=== PATIENT | female | born 1950 | race Caucasian/White ===

== ENCOUNTER → 2016-12-03 | Outpatient (REF) | payer MEDICARE | LOC: M LAB REF 12:14 | PROVIDERS: ATTEND Internal Medicine Medical Oncology | DX: C18.9 Malignant neoplasm of colon, unspecified (principal) ==

== ENCOUNTER → 2020-09-10 | Outpatient (CLI) | payer MEDICARE ==
[~2020-09-10] MED LIST: AUGM875T28 PO; LEVO75TA4 PO; ONDA-83 PO; VITA1CAP25 PO
[2020-09-10 16:17] LABS: HEMATOCRIT 33.6 % (36.0-47.0); HEMOGLOBIN 11.2 g/dl (12.0-15.5); MEAN CORPUSCULAR HEMOGLOBIN 31.2 pg (27.0-33.0); MEAN CORPUSCULAR HGB CONC 33.3 g/dl (32.0-36.5); MEAN CORPUSCULAR VOLUME 93.6 fl (80.0-96.0); PLATELET COUNT, AUTOMATED 290 10^3/uL (150-450); RED BLOOD COUNT 3.59 10^6/uL (4.00-5.40); WHITE BLOOD COUNT 21.2 10^3/uL (4.0-10.0)
--- NOTE | 2020-09-10 16:44 | REP ---
INDICATION: LOW BACK PAIN. COMPARISON: 01/10/2008 TECHNIQUE: Five views FINDINGS: Five views of the lumbosacral spine show no acute fracture, dislocation or subluxation. The intervertebral disc spaces are symmetric and well maintained. There is no spondylolysis or spondylolisthesis. The pedicles are intact bilaterally and there is no destructive osseous lesion. Mild degenerative facet joint changes are seen bilaterally at L4-5 and particularly L5-S1 which have developed since the last exam. IMPRESSION: Unremarkable lumbosacral spine series. Mild chronic changes as described above. <Electronically signed by Nino Valenzuela > 09/10/20 [id number]
[2020-09-10 16:54] LABS: ALBUMIN 1.9 GM/DL (3.2-5.2); BILIRUBIN,TOTAL 0.9 MG/DL (0.2-1.0); CALCIUM LEVEL 8.4 MG/DL (8.8-10.2); CREATININE FOR GFR 1.45 MG/DL (0.55-1.30); GLOMERULAR FILTRATION RATE 37.9 (>39); POTASSIUM SERUM 4.4 MEQ/L (3.5-5.1); THYROID STIMULATING HORMONE 1.96 uIU/ML (0.358-3.740); TOTAL PROTEIN 5.6 GM/DL (6.4-8.2)
== END ==
LOC: M RAD 13:13
PROVIDERS: ATTEND Family Medicine Addiction Medicine
DX: R53.83 Other fatigue (principal); M54.5 Low back pain

== ENCOUNTER 2020-09-11 12:12 | Inpatient (IN) | payer MEDICARE ==
[~2020-09-11] VITALS: Ht 154.9 cm; Wt 42.6 kg
[2020-09-11] MEDS ORDERED: ONDA-83 PO (12:32)
[2020-09-11] MEDS ORDERED: VITA1CAP25 PO (12:32)
[2020-09-11] MEDS ORDERED: LEVO75TA4 PO (12:32)
[2020-09-11 13:10] LABS: BASO % 0.2 % (0.0-1.0); EOS % 0.1 % (0.0-3.0); HEMATOCRIT 31.4 % (36.0-47.0); HEMOGLOBIN 10.2 g/dl (12.0-15.5); LYMPH # 0.6 10^3/uL (1.5-5.0); LYMPH % 2.6 % (24.0-44.0); MEAN CORPUSCULAR HGB CONC 32.5 g/dl (32.0-36.5); MEAN CORPUSCULAR VOLUME 95.4 fl (80.0-96.0); MONO # 0.7 10^3/uL (0.0-0.8); NEUTROPHILS # 20.4 10^3/uL (1.5-8.5); NEUTROPHILS % 91.8 % (36.0-66.0); PLATELET COUNT, AUTOMATED 326 10^3/uL (150-450); RED BLOOD COUNT 3.29 10^6/uL (4.00-5.40); WHITE BLOOD COUNT 22.2 10^3/uL (4.0-10.0)
--- OUTSIDE RECORDS SUMMARY | 2020-09-11 13:14 | CCD ---
Author Organization Unknown Address [address] [place] [id number] Phone [phone] Care Team Providers Care Trashman Name Role Phone Ariel Campuzano Unavailable Unavailable Allergies Code Code System Name Reaction Severity Status Onset NKDA Medications Name Status Start Date Stop Date alendronate 70 mg tablet TAKE 1 TABLET BY MOUTH ONCE A WEEK Active Not available cholecalciferol (vitamin D3) 1,250 mcg ( 50,000 unit) capsule TAKE 1 CAPSULE BY MOUTH ONCE A WEEK Active Not available levothyroxine 75 mcg tablet Active Not available ondansetron HCl 4 mg tablet TAKE 2 TABLETS BY MOUTH TWICE DAILY FOR NAUSEA Active Not available ropinirole 1 mg tablet TAKE 2 TABLETS BY MOUTH 1 TO 3 HOURS BEFORE BEDTIME Active Not available sensura garcia [id number] USE DIRECTED AND CHANGE EVERY 1-2 DAYS NEEDED Active Not available Vitamin D2 1,250 mcg (50,000 unit) capsu le TAKE 1 CAPSULE BY MOUTH ONCE A WEEK FOR 90 DAYS Active Not available Problems Name Status Onset Date Source Vitamin D Deficiency Active 09/06/2019 History Actinic Keratosis Active 09/06/[address] Concept Unknown 09/06/2019 History Bone Density Finding Active 10/03/2019 History Urostomy Present Active 12/24/2019 History Hypothyroidism Active 02/19/2020 History Type 2 Diabetes Mellitus without Complication Active History Finding of Gastrointestinal Device Active 02/19/2020 History History of Malignant Neoplasm of Colon Active 0 Procedures Notes: total hysterectomy, colon resecti on with reconstruction, colostomy and reversal, bladder removal, urostomy, Cholecystectomy, gastric bypass 2003 or 2004 Results Lab Results Date Name Specimen Result Interpretation Description Value Range Status Address 07/15/2020 Cbc Blood venous Wbc 6.0 K/mm3 4.0-10.0 K /mm3 [facility]): 4 [facility] Blood venous Rbc 4.50 M/mm3 4.00-5.50 M/m m3 [facility]): 4 [facility] Blood venous Hgb 14.2 gm/dL 12.0-16.0 gm/ dL [facility] ([facility]): 4 [facility] Blood venous Hct 41.7 % 36.0-48.8 % [facility] ([facility]): 4 [facility] Blood venous Mcv 92.7 fL 80-96 fL [facility] ([facility]): 4 [facility] Blood venous High Mch 31.6 pg 27.0-31.[address] [facility] ([facility]): 4 [facility] Blood venous Mchc 34.1 g/dL 32.0-36.0 g/dL [facility] ([facility]): 4 [facility] Blood venous Rdw 13.3 % 10.0-14.5 % [facility] ([facility]): 4 [facility] Blood venous Plt 254 K/mm3 172-450 K/mm3 [facility] ([facility]): 4 [facility] 07/15/2020 Microalbumin, Urine Urine High Umax 59.5 mg/L 1.3-20.0 mg/L [facility] ([facility]): 4 [facility] Urine Ucre 52.5 mg/dL [facility] ([facility]): 4 [facility] Urine Mc 113 ug/mg [facility] ([facility]): 4 [facility] 07/15/2020 HbA1C (Hemoglobin a1C), Blood Ha1C 4.6 % 3.8-5.6 % [facility] ([facility]): 4 [facility] 07/15/2020 Estimated Average Glucose Eag 85.3 mg/ dL [facility] ([facility]): 4 [facility] 07/15/2020 TSH, Serum or Plasma Tsh 1.89 uIU/mL 0 .36-3.74 uIU/mL [facility] ([facility]): 4 [facility] 07/15/2020 CMP, Serum or Plasma Blood venous Glu 83 mg/dL 74-106 mg/dL [facility] ([facility]): 4 [facility] Blood venous Bun 16 mg/dL 7-18 mg/dL [facility] ([facility]): 4 [facility] Blood venous Cre 0.8 mg/dL 0.6-1.0 mg/dL [facility] ([facility]): 4 [facility] Blood venous High Na 148 mmol/L 136-145 mmol/ L [facility] ([facility]): 4 [facility] Blood venous K 4.8 mmol/L 3.5-5.1 mmol/ L [facility] ([facility]): 4 [facility] Blood venous High Cl 112 mmol/L 98-107 mmol/L [facility] ([facility]): 4 [facility] Blood venous Co2 25 mmol/L 21-32 mmol/L [facility] ([facility]): 4 [facility] Blood venous Ca 9.2 mg/dL 8.5-10.1 mg/dL [facility] ([facility]): 4 [facility] Blood venous Gap 11.0 mmol/L 5-12 mmol/L [facility] ([facility]): 4 [facility] Blood venous Gfr 71 mL/min [facility] ([facility]): 4 [facility] Blood venous Ast 32 U/L 15-37 U/L [facility] ([facility]): 4 [facility] Blood venous Alt 40 U/L 12-78 U/L [facility] ([facility]): 4 [facility] Blood venous Alk 76 U/L 46-116 U/L [facility] ([facility]): 4 [facility] Blood venous High Tbili 1.4 mg/dL 0.2-1.0 mg/dL [facility] ([facility]): 4 [facility] Blood venous Tp 7.0 g/dL 6.4-8.2 g/dL [facility] ([facility]): 4 [facility] Blood venous Alb 3.6 gm/dL 3.4-5.0 gm/dL [facility] ([facility]): 4 [facility] 07/15/2020 Lipid Panel, Serum Chol 157 mg/dL 0-200 mg/dL [facility] ([facility]): 4 [facility] Trig 61 mg/dL 0-150 mg/dL Final [facility] ([facility]): 4 [facility] Zzzldl 46 mg/dL 0-100 mg/dL Final [facility] ([facility]): 4 [facility] High Hdl 99 mg/dL 40-60 mg/dL Final [facility] ([facility]): 4 [facility] Chdl 1.6 0.0-5.0 Final [facility] ([facility]): 4 [facility] 07/15/2020 Vitamin D, 25-Hydroxy Vd25 41.8 NG/mL 3 0.0-100.0 NG/mL Final [facility] ([facility]): 4 [facility] Past Encounters 07/17/2020 Elevated Total Bilirubin; Nausea; Hypothyroidism; Type 2 Diabetes Mellitus without Complication; Urostomy Present; History of Malignant Neoplasm of Colon; Vitamin D Deficiency Ariel Campuzano, RPA-C: [address] [facility], [facility] [address], [place] [address], Ph. Social History Tobacco Smoking Status Never Smoker Vaccine List None recorded. Plan of Care Reminders Provider Appointments None recorded. Lab None recorded. Referral None recorded. Procedures None recorded. Surgeries None recorded. Imaging None recorded. Vitals 07/17/2020 10:10AM [facility] 20 Height 61 in 02/19/2020 Height Weight Blood Pressure 61 in 116 lbs 9.6 oz 136/75 mm[Hg] 09/06/2019 Height Weight Blood Pressure 61 in 117 lbs 4 oz 136/81 mm[Hg]
--- OUTSIDE RECORDS SUMMARY | 2020-09-11 13:14 | CCD | Continuity of Care Document ---
Author Author [facility] Address [address] [place] [address] Phone Care Team Providers Care Milk Delivery Driver Name Role Phone VICKY ART PCP Allergies, Adverse Reactions, Alerts No allergy information available. Medications No medication information available. Problems No problem information available. Procedures Procedure Date Performed Status PELVIS W/O IV CONTRAST September 01, 2020 completed LOWER EXTREM W/O IV CONTRAST September 01, 2020 completed Relevant Diagnostic Tests and/or Laboratory Data Laboratory Results Test Date/Time Result Interpretation Reference Range Result Co mment Performing Site White Blood Count July 15, 2020 7:03am 6.0 4.0-10 .0 [facility], [address] [place] [id number] Red Blood Count July 15, 2020 7:03am 4.50 4.00-5.5 0 [facility], [address] [place] [address] Hemoglobin July 15, 2020 7:03am 14.2 12.0-16.0 [facility], 4 [facility] [address] Hematocrit July 15, 2020 7:03am 41.7 36.0-48.8 [facility], [address] [place] [address] Mean Corpuscular Volume July 15, 2020 7:03am 92.7 80-96 [facility], [address] [facility] [address] Mean Corpuscular Hemoglobin July 15, 2020 7:03am 31.6 27.0-31.0 [facility], [address] [facility] [address] Mean Corpuscular Hgb Concent Diff July 15, 2020 7:03am 34.1 32.0-36.0 [facility], [address] [facility] [address] Red Cell Distribution Width July 15, 2020 7:03am 13.3 10.0-14.5 [facility], [address] [facility] [address] Platelet Count July 15, 2020 7:03am 254 172-450 [facility], [address] [facility] [address] Glucose Level July 28, 2020 8:09am 79 74-106 [facility], [address] [facility] [address] Blood Urea Nitrogen July 28, 2020 8:09am 19 7-1 8 [facility], [address] [facility] [address] Creatinine July 28, 2020 8:09am 0.8 0.6-1.0 [facility], [address] [place] [address] Sodium Level July 28, 2020 8:09am 141 136-145 [facility], [address] [facility] [address] Potassium Level July 28, 2020 8:09am 4.2 3.5-5.1 [facility], [address] [facility] [address] Chloride Level July 28, 2020 8:09am 106 98-107 [facility], [address] [facility] [address] Carbon Dioxide Level July 28, 2020 8:09am 27 21 -32 [facility], [facility] [address] Calcium Level July 28, 2020 8:09am 9.8 8.5-10.1 [facility], [address] [facility] [address] Anion Gap July 28, 2020 8:09am 8.0 5-12 [facility], [address] [facility] [address] Estimated GFR (MDRD) July 28, 2020 8:09am 71 GFR IS CALCULATED IN mL/min/1.73m2 NORMAL FUNCTION: >90MILDLY DECREASED: 60-89MILDY TO MODERATELY DECREASED: 45-59 MODERATELY TO SEVERELY DECREASED: 30-44SEVERELY DECREASED: 15-29RENAL FAILURE: <15 [facility], [address] [facility] [address] Aspartate Amino Transf (AST/SGOT) July 28, 2020 8:09am 24 15-37 [facility], [address] [facility] [address] Alanine Aminotransferase (ALT/SGPT) July 28, 2020 8:09am 41 12-78 [facility], [address] [facility] [address] Alkaline Phosphatase July 28, 2020 8:09am 68 46 -116 [facility], [address] [facility] [address] Total Bilirubin July 28, 2020 8:09am 0.9 0.2-1.0 [facility], [facility] [address] Total Protein July 28, 2020 8:09am 6.5 6.4-8.2 [facility], [address] [facility] [address] Albumin July 28, 2020 8:09am 3.3 3.4-5.0 [facility], [address] [facility] [address] Cholesterol Level July 15, 2020 7:03am 157 0-200 [facility], [facility] [address] Triglycerides Level July 15, 2020 7:03am 61 0-15 0 [facility], [facility] [address] LDL Cholesterol, Calculated July 15, 2020 7:03am 46 0-100 [facility], [facility] [address] HDL Cholesterol July 15, 2020 7:03am 99 40-60 [facility], [facility] [address] Cholesterol/HDL Ratio July 15, 2020 7:03am 1.6 0. 0-5.0 [facility], [address] [facility] [address] Thyroid Stimulating Hormone (TSH) July 15, 2020 7:03am 1.89 0.36-3.74 [facility], [address] [facility] [address] Hemoglobin A1c July 15, 2020 7:03am 4.6 3.8-5. 6 Diabetic > or = to 6.5%Prediabetes 5.7-6.4%Normal <5.7 [facility], [address] [facility] [address] Urine Microalbumin July 15, 2020 7:03am 59.5 1.3-2 0.0 [facility], [address] [facility] [address] Urine Creatinine July 15, 2020 7:03am 52.5 [facility], [address] [facility] [address] Ur Microalbumin/Creat Ratio Semi-Qt July 15, 2020 7:03am 113 [facility], [address] [facility] [address] Estimated Average Glucose July 15, 2020 7:03am 85.3 [facility], [facility] [address] Vitamin D 25-Hydroxy July 15, 2020 7:03am 41.8 30.0-100.0 Vitamin D deficiency has been defined by the [place] [employer] and an Endocrine Society practice guideline as alevel of serum 25-OH vitamin D less than 20 ng/mL (1,2).The Endocrine Society went on to further define vitamin Dinsufficiency as a level between 21 and 29 ng/mL (2).1. IOM ([place] [employer]). 2010. Dietary reference intakes for calcium and D. [place]: The National Academies Press.2. Tianna MF, Rhoda NC, Colleen RAYMOND, et al. Evaluation, treatment, and prevention of vitamin D deficiency: an Endocrine Society clinical practice guideline. JCEM. 2010; 96(7):1911-30.Performed at: RN - [facility] [place] [id number] Director: Rossi Bryant MD, Phone: [phone] [facility] Health Concerns No known health concerns documented Chief Complaint and Reason for Visit Reason for Visit BACK/LEG PAIN Encounters Encounter Location(s) Arrival/Admit Date Discharge/Depart Date Provider(s) Departed Emergency [facility] September 01, 2020 11:08a m September 01, 2020 3:11pm FERCHO AMES @ Registered [facility] July 28, 2020 8:06am VICKY ART Registered [facility] July 15, 2020 6:53am IVCKY ART Assessments No Assessments Information Available Functional Status No Functional Status information available Goals No Goals Information Available Immunizations No Immunization Information Available Mental Status No Mental Status Information Available Medical Equipment No Medical Equipment Information available Insurance Providers Guarantor MAGGIE GARCIA Address [address] [address] Contact Info. Home Phone: Payer Policy Id Coverage Id Subscriber's Name Subscriber Id Effect sudhir Date Expiration Date [id number] [id number] MAGGIE GARCIA Social History Assigned Sex Female Vital Signs No vital signs result information available.
--- OUTSIDE RECORDS SUMMARY | 2020-09-11 13:14 | CCD ---
Author Author [facility] Organization [facility] Address Unknown Phone Unavailable Care Team Providers Care Construction Crew Member Name Role Phone Shreya, M Sammi PA-C Unavailable Unavailable Shreya, M Sammi PA-C Unavailable Unavailable Shreya, M Sammi PA-C Unavailable Unavailable Shreya, M Sammi PA-C Unavailable Unavailable Shreya, M Sammi PA-C Unavailable Unavailable Shreya, M Sammi PA-C Unavailable Unavailable Shreya, M Sammi PA-C Unavailable Unavailable Shreya, M Sammi PA-C Unavailable Unavailable Shreya, M Sammi PA-C Unavailable Unavailable Shreya, M Sammi PA-C Unavailable Unavailable Shreya, M Sammi PA-C Unavailable Unavailable Shreya, M Sammi PA-C Unavailable Unavailable Shreya, M Sammi PA-C Unavailable Unavailable Shreya, M Sammi PA-C Unavailable Unavailable Shreya, M Sammi PA-C Unavailable Unavailable Shreya, M Sammi PA-C Unavailable Unavailable Shreya, M Sammi PA-C Unavailable Unavailable Shreya, M Sammi PA-C Unavailable Unavailable Shreya, M Sammi PA-C Unavailable Unavailable Shreya, M Sammi PA-C Unavailable Unavailable Shreya, M Sammi PA-C Unavailable Unavailable Shreya, M Sammi PA-C Unavailable Unavailable Shreya, M Sammi PA-C Unavailable Unavailable ART, TOMASA ARIEL RPA-C Unavailable Unavailable ART, TOMASA ARIEL RPA-C Unavailable Unavailable ART, TOMASA ARIEL RPA-C Unavailable Unavailable ART, TOMASA ARIEL RPA-C Unavailable Unavailable ART, TOMASA ARIEL RPA-C Unavailable Unavailable ART, TOMASA ARIEL RPA-C Unavailable Unavailable ART, TOMASA ARIEL RPA-C Unavailable Unavailable ART, TOMASA ARIEL RPA-C Unavailable Unavailable ART, TOMASA ARIEL RPA-C Unavailable Unavailable ART, TOMASA ARIEL RPA-C Unavailable Unavailable ART, TOMASA ARIEL RPA-C Unavailable Unavailable ART, TOMASA ARIEL RPA-C Unavailable Unavailable ART, TOMASA ARIEL RPA-C Unavailable Unavailable ART, TOMASA ARIEL RPA-C Unavailable Unavailable ART, TOMASA ARIEL RPA-C Unavailable Unavailable ART, TOMASA ARIEL RPA-C Unavailable Unavailable ART, TOMASA ARIEL RPA-C Unavailable Unavailable ART, TOMASA ARIEL RPA-C Unavailable Unavailable ART, TOMASA ARIEL RPA-C Unavailable Unavailable ART, TOMASA ARIEL RPA-C Unavailable Unavailable ART, TOMASA ARIEL RPA-C Unavailable Unavailable ART, TOMASA ARIEL RPA-C Unavailable Unavailable ART, TOMASA ARIEL RPA-C Unavailable Unavailable ART, TOMASA ARIEL RPA-C Unavailable Unavailable ART, TOMASA ARIEL RPA-C Unavailable Unavailable ART, TOMASA ARIEL RPA-C Unavailable Unavailable ART, TOMASA ARIEL RPA-C Unavailable Unavailable ART, TOMASA ARIEL RPA-C Unavailable Unavailable ART, TOMASA ARIEL RPA-C Unavailable Unavailable ART, TOMASA ARIEL RPA-C Unavailable Unavailable ART, TOMASA ARIEL RPA-C Unavailable Unavailable ART, TOMASA ARIEL RPA-C Unavailable Unavailable ART, TOMASA ARIEL RPA-C Unavailable Unavailable ART, TOMASA ARIEL RPA-C Unavailable Unavailable ART, TOMASA ARIEL RPA-C Unavailable Unavailable ART, TOMASA ARIEL RPA-C Unavailable Unavailable ART, TOMASA ARIEL RPA-C Unavailable Unavailable ART, TOMASA ARIEL RPA-C Unavailable Unavailable ART, TOMASA ARIEL RPA-C Unavailable Unavailable Anjelica AMES Unavailable Unavailable HUI, L FERCHO PA Unavailable Unavailable HUI, L FERCHO PA Unavailable Unavailable HUI, L FERCHO PA Unavailable Unavailable HUI, L FERCHO PA Unavailable Unavailable HUI, L FERCHO PA Unavailable Unavailable HUI, L FERCHO PA Unavailable Unavailable HUI, L FERCHO PA Unavailable Unavailable HUI, L FERCHO PA Unavailable Unavailable HUI, L FERCHO PA Unavailable Unavailable HUI, L FERCHO PA Unavailable Unavailable HUI, L FERCHO PA Unavailable Unavailable HUI, L FERCHO PA Unavailable Unavailable HUI, L FERCHO PA Unavailable Unavailable HUI, L FERCHO PA Unavailable Unavailable HUI, L FERCHO PA Unavailable Unavailable HUI, L FERCHO PA Unavailable Unavailable HUI, L FERCHO PA Unavailable Unavailable HUI, L FERCHO PA Unavailable Unavailable NAVA, DIANA LUIS FELIPE FOUNDER PRESIDENT AND CEO-C, MSN Unavailable Unavailab le NAVA, DIANA LUIS FELIPE FOUNDER PRESIDENT AND CEO-C, MSN Unavailable Unavailab le NAVA, DIANA LUIS FELIPE FOUNDER PRESIDENT AND CEO-C, MSN Unavailable Unavailab le NAVA, DIANA LUIS FELIPE FOUNDER PRESIDENT AND CEO-C, MSN Unavailable Unavailab le NAVA, DIANA LUIS FELIPE FOUNDER PRESIDENT AND CEO-C, MSN Unavailable Unavailab le NAVA, DIANA LUIS FELIPE FOUNDER PRESIDENT AND CEO-C, MSN Unavailable Unavailab le NAVA, DIANA LUIS FELIPE FOUNDER PRESIDENT AND CEO-C, MSN Unavailable Unavailab le NAVA, DIANA LUIS FELIPE FOUNDER PRESIDENT AND CEO-C, MSN Unavailable Unavailab le NAVA, DIANA LUIS FELIPE FOUNDER PRESIDENT AND CEO-C, MSN Unavailable Unavailab le NAVA, DIANA LUIS FELIPE FOUNDER PRESIDENT AND CEO-C, MSN Unavailable Unavailab le NAVA, DIANA LUIS FELIPE FOUNDER PRESIDENT AND CEO-C, MSN Unavailable Unavailab le NAVA, DIANA LUIS FELIPE FOUNDER PRESIDENT AND CEO-C, MSN Unavailable Unavailab le NAVA, DIANA LUIS FELIPE FOUNDER PRESIDENT AND CEO-C, MSN Unavailable Unavailab le NAVA, DIANA LUIS FELIPE FOUNDER PRESIDENT AND CEO-C, MSN Unavailable Unavailab le NAVA, DIANA LUIS FELIPE FOUNDER PRESIDENT AND CEO-C, MSN Unavailable Unavailab le NAVA, DIANA LUIS FELIPE FOUNDER PRESIDENT AND CEO-C, MSN Unavailable Unavailab le NAVA, DIANA LUIS FELIPE FOUNDER PRESIDENT AND CEO-C, MSN Unavailable Unavailab le NAVA, DIANA LUIS FELIPE FOUNDER PRESIDENT AND CEO-C, MSN Unavailable Unavailab le NAVA, DIANA LUIS FELIPE FOUNDER PRESIDENT AND CEO-C, MSN Unavailable Unavailab le NAVA, DIANA LUIS FELIPE FOUNDER PRESIDENT AND CEO-C, MSN Unavailable Unavailab le NAVA, DIANA LUIS FELIPE FOUNDER PRESIDENT AND CEO-C, MSN Unavailable Unavailab le NAVA, DIANA LUIS FELIPE FOUNDER PRESIDENT AND CEO-C, MSN Unavailable Unavailab le NAVA, DIANA LUIS FELIPE FOUNDER PRESIDENT AND CEO-C, MSN Unavailable Unavailab le NAVA, DIANA LUIS FELIPE FOUNDER PRESIDENT AND CEO-C, MSN Unavailable Unavailab le NAVA, DIANA LUIS FELIPE FOUNDER PRESIDENT AND CEO-C, MSN Unavailable Unavailab le NAVA, DIANA LUIS FELIPE FOUNDER PRESIDENT AND CEO-C, MSN Unavailable Unavailab le NAVA, DIANA LUIS FELIPE FOUNDER PRESIDENT AND CEO-C, MSN Unavailable Unavailab le NAVA, DIANA LUIS FELIPE FOUNDER PRESIDENT AND CEO-C, MSN Unavailable Unavailab le NAVA, DIANA LUIS FELIPE FOUNDER PRESIDENT AND CEO-C, MSN Unavailable Unavailab le NAVA, DIANA LUIS FELIPE FOUNDER PRESIDENT AND CEO-C, MSN Unavailable Unavailab le NAVA, DIANA LUIS FELIPE FOUNDER PRESIDENT AND CEO-C, MSN Unavailable Unavailab le NAVA, DIANA LUIS FELIPE FOUNDER PRESIDENT AND CEO-C, MSN Unavailable Unavailab le NAVA, DIANA LUIS FELIPE FOUNDER PRESIDENT AND CEO-C, MSN Unavailable Unavailab le NAVA, DIANA LUIS FELIPE FOUNDER PRESIDENT AND CEO-C, MSN Unavailable Unavailab le NAVA, DIANA LUIS FELIPE FOUNDER PRESIDENT AND CEO-C, MSN Unavailable Unavailab le NAVA, DIANA LUIS FELIPE FOUNDER PRESIDENT AND CEO-C, MSN Unavailable Unavailab le NAVA, DIANA LUIS FELIPE FOUNDER PRESIDENT AND CEO-C, MSN Unavailable Unavailab le NAVA, DIANA LUIS FELIPE FOUNDER PRESIDENT AND CEO-C, MSN Unavailable Unavailab le NAVA, DIANA LUIS FELIPE FOUNDER PRESIDENT AND CEO-C, MSN Unavailable Unavailab le NAVA, DIANA LUIS FELIPE FOUNDER PRESIDENT AND CEO-C, MSN Unavailable Unavailab le NAVA, DIANA LUIS FELIPE FOUNDER PRESIDENT AND CEO-C, MSN Unavailable Unavailab le NAVA, DIANA LUIS FELIPE FOUNDER PRESIDENT AND CEO-C, MSN Unavailable Unavailab le ART, TOMASA ARIEL RPA-C Unavailable Unavailable ART, TOMASA ARIEL RPA-C Unavailable Unavailable ART, TOMASA ARIEL RPA-C Unavailable Unavailable ART, TOMASA ARIEL RPA-C Unavailable Unavailable ART, TOMASA ARIEL RPA-C Unavailable Unavailable ART, TOMASA ARIEL RPA-C Unavailable Unavailable ART, TOMASA ARIEL RPA-C Unavailable Unavailable ART, TOMASA ARIEL RPA-C Unavailable Unavailable ART, TOMASA ARIEL RPA-C Unavailable Unavailable ART, TOMASA ARIEL RPA-C Unavailable Unavailable ART, TOMASA ARIEL RPA-C Unavailable Unavailable ART, TOMASA ARIEL RPA-C Unavailable Unavailable ART, TOMASA ARIEL RPA-C Unavailable Unavailable ART, TOMASA ARIEL RPA-C Unavailable Unavailable ART, TOMASA ARIEL RPA-C Unavailable Unavailable ART, TOMASA ARIEL RPA-C Unavailable Unavailable ART, TOMASA ARIEL RPA-C Unavailable Unavailable ART, TOMASA ARIEL RPA-C Unavailable Unavailable ART, TOMASA ARIEL RPA-C Unavailable Unavailable ART, TOMASA ARIEL RPA-C Unavailable Unavailable ART, TOMASA ARIEL RPA-C Unavailable Unavailable ART, TOMASA ARIEL RPA-C Unavailable Unavailable ART, TOMASA ARIEL RPA-C Unavailable Unavailable ART, TOMASA ARIEL RPA-C Unavailable Unavailable ART, TOMASA ARIEL RPA-C Unavailable Unavailable ART, TOMASA ARIEL RPA-C Unavailable Unavailable ART, TOMASA ARIEL RPA-C Unavailable Unavailable ART, TOMASA ARIEL RPA-C Unavailable Unavailable ART, TOMASA ARIEL RPA-C Unavailable Unavailable ART, TOMASA ARIEL RPA-C Unavailable Unavailable ART, TOMASA ARIEL RPA-C Unavailable Unavailable RAT, TOMASA ARIEL RPA-C Unavailable Unavailable ART, TOMASA ARIEL RPA-C Unavailable Unavailable ART, TOMASA ARIEL RPA-C Unavailable Unavailable ART, TOMASA ARIEL RPA-C Unavailable Unavailable ART, TOMASA ARIEL RPA-C Unavailable Unavailable ART, TOMASA ARIEL RPA-C Unavailable Unavailable ART, TOMASA ARIEL RPA-C Unavailable Unavailable ART, TOMASA ARIEL RPA-C Unavailable Unavailable Kelly ELIZABETH Unavailable Unavailable Veronika MANCERA Unavailable [phone] Veronika MANCERA Unavailable [phone] Veronika MANCERA Unavailable [phone] Veronika MANCERA Unavailable [phone] Veronika MANCERA Unavailable [phone] Deanna, A Sammi FOUNDER PRESIDENT AND CEO Unavailable Unavailable Deanna, A Sammi FOUNDER PRESIDENT AND CEO Unavailable Unavailable Deanna, A Sammi FOUNDER PRESIDENT AND CEO Unavailable Unavailable Deanna, A Sammi FOUNDER PRESIDENT AND CEO Unavailable Unavailable Deanna, A Sammi FOUNDER PRESIDENT AND CEO Unavailable Unavailable Deanna, A Sammi FOUNDER PRESIDENT AND CEO Unavailable Unavailable Deanna, A Sammi FOUNDER PRESIDENT AND CEO Unavailable Unavailable Deanna, A Sammi FOUNDER PRESIDENT AND CEO Unavailable Unavailable Deanna, A Sammi FOUNDER PRESIDENT AND CEO Unavailable Unavailable Deanna, A Sammi FOUNDER PRESIDENT AND CEO Unavailable Unavailable Deanna, A Sammi FOUNDER PRESIDENT AND CEO Unavailable Unavailable Deanna, A Sammi FOUNDER PRESIDENT AND CEO Unavailable Unavailable Deanna, A Sammi FOUNDER PRESIDENT AND CEO Unavailable Unavailable Deanna, A Sammi FOUNDER PRESIDENT AND CEO Unavailable Unavailable Deanna, A Sammi FOUNDER PRESIDENT AND CEO Unavailable Unavailable Deanna, A Sammi FOUNDER PRESIDENT AND CEO Unavailable Unavailable Deanna, A Sammi FOUNDER PRESIDENT AND CEO Unavailable Unavailable Deanna, A Sammi FOUNDER PRESIDENT AND CEO Unavailable Unavailable Deanna, A Sammi FOUNDER PRESIDENT AND CEO Unavailable Unavailable Deanna, A Sammi FOUNDER PRESIDENT AND CEO Unavailable Unavailable Deanna, A Sammi FOUNDER PRESIDENT AND CEO Unavailable Unavailable Deanna, A Sammi FOUNDER PRESIDENT AND CEO Unavailable Unavailable Deanna, A Sammi FOUNDER PRESIDENT AND CEO Unavailable Unavailable Deanna, A Sammi FOUNDER PRESIDENT AND CEO Unavailable Unavailable Deanna, A Sammi FOUNDER PRESIDENT AND CEO Unavailable Unavailable Deanna, A Sammi FOUNDER PRESIDENT AND CEO Unavailable Unavailable Deanna, A Sammi FOUNDER PRESIDENT AND CEO Unavailable Unavailable Deanna, A Sammi FOUNDER PRESIDENT AND CEO Unavailable Unavailable Deanna, A Sammi FOUNDER PRESIDENT AND CEO Unavailable Unavailable Deanna, A Sammi FOUNDER PRESIDENT AND CEO Unavailable Unavailable Deanna, A Sammi FOUNDER PRESIDENT AND CEO Unavailable Unavailable Deanna, A Sammi FOUNDER PRESIDENT AND CEO Unavailable Unavailable Deanna, A Sammi FOUNDER PRESIDENT AND CEO Unavailable Unavailable Deanna, A Sammi FOUNDER PRESIDENT AND CEO Unavailable Unavailable Deanna, A Sammi FOUNDER PRESIDENT AND CEO Unavailable Unavailable Deanna, A Sammi FOUNDER PRESIDENT AND CEO Unavailable Unavailable Deanna, A Sammi FOUNDER PRESIDENT AND CEO Unavailable Unavailable Deanna, A Sammi FOUNDER PRESIDENT AND CEO Unavailable Unavailable Deanna, A Sammi FOUNDER PRESIDENT AND CEO Unavailable Unavailable Deanna, A Sammi FOUNDER PRESIDENT AND CEO Unavailable Unavailable Deanna, A Sammi FOUNDER PRESIDENT AND CEO Unavailable Unavailable Deanna, A Sammi FOUNDER PRESIDENT AND CEO Unavailable Unavailable Deanna, A Sammi FOUNDER PRESIDENT AND CEO Unavailable Unavailable Deanna, A Sammi FOUNDER PRESIDENT AND CEO Unavailable Unavailable ELIZABETH, A CECILIA Unavailable Unavailable ART, TOMASA ARIEL RPA-C Unavailable Unavailable ART, TOMASA ARIEL RPA-C Unavailable Unavailable ART, TOMASA ARIEL RPA-C Unavailable Unavailable ART, TOMASA ARIEL RPA-C Unavailable Unavailable ART, TOMASA ARIEL RPA-C Unavailable Unavailable ART, TOMASA ARIEL RPA-C Unavailable Unavailable ART, TOMASA ARIEL RPA-C Unavailable Unavailable ART, TOMASA ARIEL RPA-C Unavailable Unavailable ART, TOMASA ARIEL RPA-C Unavailable Unavailable ART, TOMASA ARIEL RPA-C Unavailable Unavailable ART, TOMASA ARIEL RPA-C Unavailable Unavailable ART, TOMASA ARIEL RPA-C Unavailable Unavailable ART, TOMASA ARIEL RPA-C Unavailable Unavailable ART, TOMASA ARIEL RPA-C Unavailable Unavailable ART, TOMASA ARIEL RPA-C Unavailable Unavailable ART, TOMASA ARIEL RPA-C Unavailable Unavailable ART, TOMASA ARIEL RPA-C Unavailable Unavailable ART, TOMASA ARIEL RPA-C Unavailable Unavailable ART, TOMASA ARIEL RPA-C Unavailable Unavailable ART, TOMASA ARIEL RPA-C Unavailable Unavailable ART, TOMASA ARIEL RPA-C Unavailable Unavailable ART, TOMASA ARIEL RPA-C Unavailable Unavailable ART, TOMASA ARIEL RPA-C Unavailable Unavailable ART, TOMASA ARIEL RPA-C Unavailable Unavailable ART, TOMASA ARIEL RPA-C Unavailable Unavailable ART, TOMASA ARIEL RPA-C Unavailable Unavailable ART, TOMASA ARIEL RPA-C Unavailable Unavailable ART, TOMASA ARIEL RPA-C Unavailable Unavailable ART, TOMASA ARIEL RPA-C Unavailable Unavailable ART, TOMASA ARIEL RPA-C Unavailable Unavailable ATR, TOMASA ARIEL RPA-C Unavailable Unavailable ART, TOMASA ARIEL RPA-C Unavailable Unavailable ART, TOMASA ARIEL RPA-C Unavailable Unavailable ART, TOMASA ARIEL RPA-C Unavailable Unavailable ART, TOMASA ARIEL RPA-C Unavailable Unavailable ART, TOMASA ARIEL RPA-C Unavailable Unavailable ART, TOMASA ARIEL RPA-C Unavailable Unavailable ART, TOMASA ARIEL RPA-C Unavailable Unavailable ART, TOMASA ARIEL RPA-C Unavailable Unavailable [facility], NOLBERTO PERRY Unavailable Unavailable Re-disclosure Warning The records that you are about to access may contain information from federally-assisted alcohol or drug abuse programs. If such information is present, then the following federally mandated warning applies: This information has been disclosed to you from records protected by federal confidentiality rules (42 CFR part 2). The federal rules prohibit you from making any further disclosure of this information unless further disclosure is expressly permitted by the written consent of the person to whom it pertains or as otherwise permitted by 42 CFR part 2. A general authorization for the release of medical or other information is NOT sufficient for this purpose. The Federal rules restrict any use of the information to criminally investigate or prosecute any alcohol or drug abuse patient.The records that you are about to access may contain highly sensitive health information, the redisclosure of which is protected by Article 27-F of the [facility] Public Health law. If you continue you may have access to information: Regarding HIV / AIDS; Provided by facilities licensed or operated by the [facility] Office of Mental Health; or Provided by the [facility] Office for People With Developmental Disabilities. If such information is present, then the following [facility] mandated warning applies: This information has been disclosed to you from confidential records which are protected by state law. State law prohibits you from making any further disclosure of this information without the specific written consent of the person to whom it pertains, or as otherwise permitted by law. Any unauthorized further disclosure in violation of state law may result in a fine or half-way sentence or both. A general authorization for the release of medical or other information is NOT sufficient authorization for further disc losure. Encounters Encounter Providers Location Date Indications Data Source(s ) Emergency Attender: FERCHO Brookser: ARIEL JACOBS 09/01/2020 06:51:00 PM EST - 09/01/2020 08:11:00 PM [facility] pital Patient discharged. Outpatient Attender: ARIEL EPPERSONCReferrer: CATIE JACOBS EMERGENCY ROOM-LABOTHPROV 07/28/2020 01:06:00 PM EST - 07/28/2020 01:06:00 PM [facility] REYNALDO Pratt: [address], [place] [address], Ph. Attender: ARIEL JACOBS [facility] Medical 07/17/2020 12:00:00 AM EST [facility] ([facility]) Outpatient Attender: ARIEL Bennettferrer: CATIE ART RPA-C EMERGENCY ROOM-LABOTHPROV 07/15/2020 11:53:00 AM EST - 07/15/2020 11:53:00 AM EST [facility] ENTER 06/16/2020 12:00:00 AM EST eCW1 ([facility]) Outpatient Attender: ARIEL EPPERSONC [facility] 05/16/2020 09:34:[address] [facility] Outpatient Attender: NOLBERTO HAJI [facility] 04/16 03:50:[address] [facility] Outpatient Attender: ARIEL EPPERSONC [facility] 05/08/2020 03:49:[address] [facility] Outpatient Attender: NOLBERTO HAJI ALL 04/15 02:31:[address] [facility] Outpatient Attender: NOLBERTO HAJI ALL 03/16 03:49:[address] [facility] Outpatient Attender: NOLBERTO HAJI ALL 02/12 05:27:[address] [facility] Outpatient Attender: ARIEL ART RPA-C ALL 02/27/2020 07:38:[address] [facility] Outpatient Attender: NOLBERTO HAJI ALL 02/12 07:38:[address] [facility] Outpatient Attender: ARIEL Lalrer: CATIE ART RPA-C EMERGENCY ROOM-LABOTHPROV 02/20/2020 08:59:00 AM EDT - 02/20/2020 08:59:00 AM EDT [facility] Outpatient Attender: ARIEL ART RPA-C ALL 02/19/2020 02:16:[address] [facility] Outpatient Attender: NOLBERTO HAJI ALL 12/13 12:30:[address] [facility] Outpatient Attender: ARIEL ART RPA-C ALL 12/24/2019 11:26:[address] [facility] Outpatient Attender: NOLBERTO HAJI ALL 11/2019 02:30:[address] [facility] Outpatient Attender: CECILIA Chao er: CECILIA ELIZABETHReferrer: ARIEL ART RPA-C 11/12/2019 10:00:00 AM EDT [facility] Outpatient Attender: CECILIA Chao er: CECILIA ELIZABETHReferrer: ARIEL ART RPA-C EMERGENCY ROOM-LABOTHPROV 11/07/2019 12:13:00 PM EDT - 11/07/2019 12:13:00 PM EDT [facility] C ENTER 10/11/2019 12:00:00 AM EST eCW1 ([facility]) Outpatient Attender: Sammi Huerta FNPReferrer: ARIEL MIDDLETON RPA-C 10/09/2019 04:14:00 PM EST - 10/09/2019 04:14:00 PM EST [facility] C ENTER 10/05/2019 12:00:00 AM EST eCW1 ([facility]) Outpatient Attender: ARIEL ART RPA-C ALL 10/03/2019 12:06:02 PM [facility] Outpatient Attender: NOLBERTO HAJI ALL 09/15 12:05:02 PM [facility] Outpatient Attender: ARIEL ART RPA-C ALL 09/12/2019 11:28:04 AM [facility] Outpatient Attender: NOLBERTO HAJI ALL 08/16 11:28:03 AM [facility] Outpatient Attender: ARIEL ART RPA-C ALL 09/12/2019 11:24:01 AM [facility] Outpatient [facility] 08/29/2019 12:00:00 AM EST eCW1 ([facility]) Outpatient Attender: Sammi SIGALACReferrer: ARIEL ART RPA-C EMERGENCY ROOM-LAB 08/27/2019 12:56:00 PM EST - 08/27/2019 12:56:[address] [facility] ENTER 08/21/2019 12:00:00 AM EST eCW1 ([facility]) Outpatient Attender: ARIEL EPPERSONCReferrer: CATIE JACOBS EMERGENCY ROOM-RIVCLI 06/12/2019 01:18:00 PM EDT - 06/12/2019 01:18:00 PM [facility] Outpatient Attender: ARIEL JACOBS 08/16 02:00:00 PM EST - 09/11/2018 02:00:00 PM [facility] Emergency Attender: SOSA MANCERAReferrer: VENU PAULINO EMERGENCY ROOM-ER 11/07/2016 05:51:00 PM EDT - 11/08/2016 01:05:00 AM [facility] Outpatient Attender: VENU PAULINOReferr er: LUIS FELIPE SINGER, VENU EMERGENCY ROOM-MAMMO 02/23/2016 08:53:00 AM EDT [facility] Insurance Providers Payer name Policy type / Coverage type Policy ID Covered alliance party ID Covered alliance party's relationship to rosenberg Policy [place] Plan Information MEDICARE COMPLETE [id number] SP [id number] MEDICARE COMPLETE [id number] SP [id number] [employer] [id number] S MEB [id number] [employer] [id number] S [id number] [id number] [employer] MEDICARE [id number] S [id number] [id number] [id number] S [id number] [id number] ANSI-Commercial [id number] ANSI-Commercial [id number] ANSI-Commercial [id number] ANSI-Commercial [id number] ANSI-Commercial [id number] ANSI-Commercial [id number] ANSI-Commercial [id number] ANSI-Commercial [id number] ANSI-Commercial [id number] ANSI-Commercial [id number] ANSI-Commercial [id number] ANSI-Commercial [id number] ANSI-Commercial [id number] ANSI-Commercial [id number] MEDICARE COMPLETE [id number] SP [id number] [employer] [place] PPO 302/[id number] SP [id number] [employer] [place] [id number] S [id number] Problems, Conditions, and Diagnoses Code Display Name Description Problem Type Effective Dates Data Source(s) 686283541 History of malignant neoplasm of colon H istory of Malignant Neoplasm of Colon Problem 07/29/2020 12:00:00 AM EST [facility] ([facility]) V85.1 BMI 21.0-21.9 BMI 21.0-21.9 05/16/2020 09:33:[address] [facility] [id number] Hypothyroidism, unspecified Hypothyroidism, unspecifie d 02/27/2020 07:37:[address] [facility] Z85.038 Personal history of other malignant neop lasm of large intestine History of malignant neoplasm of colon 02/19/2020 02:14:11 PM EDT No [facility] V45.86 Bariatric surgery status Bariatric surgery status 02/19/2020 02:14:[address] [facility] since 2003 or 2004 [id number] Type 2 diabetes mellitus without complic ations Type 2 diabetes mellitus without complications 02/19/2020 02:14:11 PM EDT No [facility] diet controlled since 2003 [id number] Finding of gastrointestinal device Finding of Ga strointestinal Device Problem 02/19/2020 12:00:00 AM EDT [facility] ([facility]) [id number] Type 2 diabetes mellitus without complic ation Type 2 Diabetes Mellitus without Complication Problem 02/19/2020 12:00:00 AM EDT [facility] ([facility]) [id number] Hypothyroidism Hypothyroidism Problem 02/19/2020 12:00: 00 AM EDT [facility] ([facility]) Z93.6 Other artificial openings of urinary tract status Uros dasia present 12/24/2019 11:25:[address] [facility] [id number] Urostomy present Urostomy Present Problem 12/24/2019 12 :00:00 AM EDT [facility] ([facility]) M85.89 Other specified disorders of bone densit y and structure, multiple sites Other specified disorders of bone density and structure, multiple sites 10/03/2019 12:04:04 PM [facility] [id number] Bone density finding Bone Density Finding Problem 10/03/2019 12:00:00 AM EST [facility] ([facility] er) 787.01 Nausea with vomiting, unspecified Nausea with vomiting , unspecified 09/12/2019 11:27:25 AM [facility] L57.0 Actinic keratosis Actinic keratosis 09/12/2019 11:22:13 AM [facility] [id number] Vitamin D deficiency, unspecified Vitamin D deficiency , unspecified 09/12/2019 11:22:13 AM [facility] [id number] Encounter for general adult medical examination without abnormal findings Encounter for general adult medical exam ination without abnormal findings 09/12/2019 11:22:13 AM [facility] [id number] SNOMED CT Concept SNOMED CT Concept Problem 09/06 12:00:00 AM EST - 07/29/2020 12:00:00 AM EST [facility] ([facility]) [id number] Actinic keratosis Actinic Keratosis Problem 09/06 12:00:00 AM EST [facility] ([facility])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 Press.2. Tianna PRITCHETT, Rhoda FONG, Colleen RAYMOND, et al. Evaluation, treatment, and prevention of vitamin D deficiency: an Endocrine Society clinical practice guideline. JCEM. 2010; 96(7):1911-30. ID Date Data Source [id number] 02/20/2020 10:10:00 AM EDT [facility] Name Value Range Interpretation Code Description Data Joselin rce(s) Supporting Document(s) FREE T4 0.85 ng/dL 0.76-1.46 [facility] ID Date Data Source [id number] 02/20/2020 10:10:00 AM EDT [facility] Name Value Range Interpretation Code Description Data Joselin rce(s) Supporting Document(s) TSH 3.71 uIU/mL 0.36-3.74 [facility] ID Date Data Source [id number] 02/20/2020 09:53:00 AM EDT [facility] l Name Value Range Interpretation Code Description Data Joselin rce(s) Supporting Document(s) GLUCOSE 85 mg/dL 74-106 [facility] BLOOD UREA NITROGEN 17 mg/dL 7-18 [facility] ital CREATININE 0.8 mg/dL 0.6-1.0 [facility] SODIUM 142 mmol/L 136-145 [facility] POTASSIUM 4.7 mmol/L 3.5-5.1 [facility] CHLORIDE 109 mmol/L 98-107 H [facility] CO2 25 mmol/L 21-32 [facility] CALCIUM 8.8 mg/dL 8.5-10.1 [facility] ANION GAP 8.0 mmol/L 5-12 [facility] GLOMERULAR FILTRATION RATE 71 mL/min [facility] GFR IS CALCULATED IN mL/min/1.73m2 GOLD L FUNCTION: >90MILDLY DECREASED: 60-89MILDY TO MODERATELY DECREASED: 45-59 MODERATELY TO SEVERELY DECREASED: 30-44SEVERELY DECREASED: 15-29RENAL FAILURE: <15 AST 20 U/L 15-37 [facility] ALT 39 U/L 12-78 [facility] ALKALINE PHOSPHATASE 82 U/L 46-116 [facility] pital TOTAL BILIRUBIN 1.0 mg/dL 0.2-1.0 [facility] TOTAL PROTEIN 6.6 g/dl 6.4-8.2 [facility] ALBUMIN 3.4 gm/dL 3.4-5.0 [facility] ID Date Data Source [id number] 02/20/2020 09:53:00 AM EDT [facility] l Name Value Range Interpretation Code Description Data Joselin rce(s) Supporting Document(s) CHOLESTEROL 140 mg/dL 0-200 [facility] TRIGLYCERIDES 69 mg/dL 0-150 [facility] LDL CHOLESTEROL 48 mg/dL 0-100 [facility] HDL CHOLESTEROL 78 mg/dL 40-60 H [facility] CHOL/HDL RATIO 1.8 0.0-5.0 [facility] ID Date Data Source [id number] 02/20/2020 09:40:00 AM EDT [facility] Name Value Range Interpretation Code Description Data [facility] rce(s) Supporting Document(s) ESTIMATED AVERAGE GLUCOSE 82.5 mg/dL [facility] ID Date Data Source [id number] 02/20/2020 09:40:00 AM EDT [facility] l Name Value Range Interpretation Code Description Data [facility] rce(s) Supporting Document(s) HGBA1C 4.5 % 3.8-5.6 [facility] Diabetic > or = to 6.5%Prediabetes 5.7-6 .4%Normal <5.7 ID Date Data Source [id number] 02/20/2020 09:18:00 AM EDT [facility] l Name Value Range Interpretation Code Description Data [facility] rce(s) Supporting Document(s) WHITE BLOOD COUNT 5.6 K/mm3 4.0-10.0 [facility] al RED BLOOD COUNT 4.42 M/mm3 4.00-5.50 [facility] HEMOGLOBIN 14.2 gm/dL 12.0-16.0 [facility] HEMATOCRIT 41.9 % 36.0-48.8 [facility] MEAN CELL VOLUME 94.8 fl 80-96 [facility] MEAN CORPUSCULAR HEMOGLOBIN 32.1 pg 27.0-31.0 H [facility] MEAN CORPUSCULAR HGB CONC 33.9 g/dl 32.0-36.0 [facility] RED CELL DISTRIBUTION WIDTH 13.0 % 10.0-14.5 [facility] PLATELET COUNT 216 K/mm3 172-450 [facility] MEAN PLATELET VOLUME 10.2 fl 9.0-13.0 [facility] pital GRAN % 68.0 % 50-80.0 [facility] IG% 0.0 % 0.0-0.2 [facility] LYMPH % 23.9 % 25.0-50.0 L [facility] MONO % 5.7 % 2.0-10.0 [facility] EOS % 2.0 % 0-5.0 [facility] BASO % 0.4 % 0.0-2.0 [facility] GRAN # 3.8 K/mm3 2.0-8.00 [facility] IG# 0.0 K/mm3 0.0-0.2 [facility] LYMPH # 1.3 K/mm3 1.0-5.0 [facility] MONO # 0.3 K/mm3 0.10-1.20 [facility] EOS # 0.1 K/mm3 0.0-0.5 [facility] BASO # 0.0 K/mm3 0.0-0.2 [facility] ID Date Data Source [id number] 02/19/2020 01:36:[address] [facility] Measurements & CalculationsHeight: 61 inches 154.94 cm Weight: 116.6 pounds 53 kg Body Mass Index (BMI): 22.11BMI Interpretation: Healthy WeightBody Surface Area (BSA): 1.50Weight Management Education Done (Nutrition/Physical Activity)Vital SignsTemperature: 97.3F 36.28C tympanic Pulse Rate: 56 beats/minuteRespiratory Rate: 16 respirations/minuteBlood Pressure: 136/75 right arm sitting automaticO2 Saturation: 98% Vital Signs performed by: Irene Naik , February 19, 2020 1:36 PMInitial Intake Information From: patientRoom #: 1Infectious Disease / Travel ScreeningRecent travel for you or any close contacts? NoHave you had any close contact with anyone diagnosed with or under investigation for COVID-19 (coronavirus)? NoFever? NoRespiratory symptoms: cough, cold, congestion, shortness of breath, difficulty breathing? NoLoss of smell? NoLoss of taste? NoSmoking, Tobacco, Vaping or Smoke Exposure StatusSmoke Status: never smokerTobacco Use: NoDo you vape? NoPassive Smoke Exposure: NoMenstrual HistoryComments: menopauseHealthcare HistorySince your last office visit...Have you been admitted to the hospital? NoHave you been to an emergency room (ER) or urgent care clinic? NoHave you seen [place] [facility] [place] by: Irene Naik , February 19, 2020 1:40 PMRate Your HealthIn general, would you say your health is? Very GoodPain AssessmentAre you currently having any pain which... You would like your provider to address? No Affects your activity level? NoDepression Screening - PHQ-2Over the last two weeks, have you... Had little interest or pleasure in doing things? Not at all Been feeling down, depressed, or hopeless? Not at all PHQ-2 Score: 0Anxiety Screening - RUFINO-2Over the last two weeks, have you been... Feeling nervous, anxious, or on edge? Not at all Unable to stop or control worrying? Not at all RUFINO-2 Score: 0Food InsecurityWithin the past year...Did you worry whether your food would run out before you got money to buy more? NoWas there a time when the food you bought didn't last and you didn't have money to get more? NoScreening, Brief Intervention, & Referral to Treatment (SBIRT)Pre-Screening Questions How many times have you have 4 or more drinks in a day? 0How many times have you used an illegal drug or used a prescription medication for a non-medical reason? 0Performed by: Irene Naik , February 19, 2020 1:44 PMPatient History Medical History:colon cancer that invaded the bladderdiet controlled diabetesvitamin d deficiencyhypothyroidismosteoporosisSurgical History:total hysterectomycolon resection with reconstructioncolostomy and reversalbladder removalurostomyCholecystectomygastric bypass 2003 or 2004Family History:Diabetes (Mother, Brother, Sister)Myocardial infarction ([place]) (Father)Social/Personal History: Nurses Note stopped taking roprinolole thought it was upsetting stomachdecided that wasn't it -will start taking it againrealized it was from taking medications and just going to bedChi Complaintfollow up visitHistory of Present Illness (HPI)Pt is a 70 y/o female, presents for routine follow-up. Rescheduled her October 2019 colon surgeon and urologist in [place], now scheduled for April 2020. States she had CT scans updated locally for them in October 2019 and results were sent to her specialists, none on record here. Continue to take Zofran as needed for nausea. Has not had labs in quite some time. Mammogram and DEXA were done Spring 2019. No records in the chart. HPI performed by: Ariel LLAMAS, February 19, 2020 2:08 PMTransitions of Care InboundProblem ReviewProblem List was reviewed and/or updated during this visit .Medication Reconciliation & ReviewMedication List was reviewed and/or updated during this visit, including review of any [id number] medications, herbal therapies, and/or supplements.Allergy ReviewAllergy List was reviewed and/or updated during this visit. Patient has no known allergies.Adult Preventive CareLabs/Meds/Other Counseling-Nutrition and Physical Activity:BMI Interpretation: Healthy Weight (02/19/2020) Counseling: Done (02/19/2020) Physical Activity: Done (02/19/2020)Review of Systems General: Denies loss of appetite, chills, dizziness, fatigue, fever, headache, feeling ill. Cardiovascular: Denies chest pain, palpitations, feeling faint. Respiratory: Denies cough, difficulty breathing, shortness of breath. Gastrointestinal: Denies nausea, vomiting, diarrhea, constipation, pain or discomfort. Genitourinary: Denies blood in urine. denies change to urostomy outputNeurologic: Denies weakness, feeling faint. Physical ExamGeneral Appearance: well nourished, well hydrated, no acute distress, slight femaleEyes, External: conjunctivae and lids normal, EOMIRespiratory, Auscultation: clear to auscultation bilaterally; no rales, rhonchi, or wheezesCardiovascular, Auscu ltation: S1, S2 audible; no murmur, rub, or gallop; RRRPeripheral Circulation: no clubbing, cyanosis, edema, or varicositiesAbdomen: soft, non-tender, no masses, bowel sounds normalGait & Station: normalOrientation: oriented to time, place, and personJudgment & Insight: intactCare Management Plan Transitions of CareInboundRate Your HealthIn general, would you say your health is? Very GoodAssessment & Plan Problems:Added: Bariatric surgery status (ICD-V45.86) (BNJ25-Q90.84): since 2003 or 2004Type 2 diabetes mellitus without complications (UQR50-Y20.9): diet controlled since 2003 Assessment: Instructions: Update labs as ordered. Recommend low carbohydrate diet: reduce pasta, bread, potatoes, rice. If you do eat carbohydrates, better choices are whole wheat and brown rice products. Recommend portion control and avoidance of soda and sugary foods. Increase physical activity and monitor weight. Recommend annual evaluation of eye and foot health, either here or with a specialist office.Hypothyroidism, unspecified (YTD68-M93.9) Assessment: Instructions: Update labs as ordered.History of malignant neoplasm of colon (ICD-V10.05) (HVN39-H61.038) Assessment: Instructions: Continue with your specialists as scheduled.Assessed:Vitamin D deficiency, unspecified (LVF37-W15.9) Assessment: Instructions: Update labs as ordered.Urostomy present (ICD-V44.6) (ICD10- Z93.6) Assessment: Instructions: As above. Call with any concerns.Other specified disorders of bone density and structure, multiple sites (WZI83-M27.89) Assessment: Instructions: Will need DEXA report.Removed:Nausea with vomiting, unspecified (ICD-787.01) (BYJ09-C13.2)Patient Instructions/Care Plan: Type 2 diabetes mellitus without complications: Update labs as ordered. Recommend low carbohydrate diet: reduce pasta, bread, potatoes, rice. If you do eat carbohydrates, better choices are whole wheat and brown rice products. Recommend portion control and avoidance of soda and sugary foods. Increase physical activity and monitor weight. Recommend annual evaluation of eye and foot health, either here or with a specialist office.Vitamin D deficiency- unspecified: Update labs as ordered.Hypothyroidism- unspecified: Update labs as ordered.History of malignant neoplasm of colon: Continue with your specialists as scheduled.Urostomy present: As above. Call with any concerns.Other specified disorders of bone density and structure- multiple sites: Will need DEXA report. Plan developed in collaboration with patient and/or familyMedications:ONDANSETRON HCL 4 MG ORAL TABLETIMODIUM A-D 2 MG ORAL TABLETFOSAMAX 70 MG ORAL TABLETSEMSURA ESPERANZA 39445 BAGSVITAMIN D3 1.25 MG (01970 UT) ORAL CAPSULEROPINIROLE HCL 1 MG ORAL TABLETLEVOTHYROXINE SODIUM 75 MCG ORAL TABLETMedication Changes:Added: FOSAMAX 70 MG ORAL TABLET-Once weeklyIMODIUM A-D 2 MG ORAL TABLET-as neededONDANSETRON HCL 4 MG ORAL TABLET-take 1 tablet po daily at bedtimemAllergies:No Known Allergies (updated 02/19/2020) Orders:COMP METABOLIC PANEL [CPT-76012] CBC W/DIFF [CPT-98875] HgBA1c [CPT-02945] LIPID PANEL [CPT-59801] TSH [CPT-62159] T-4 free [CPT-39146] Vitamin D 250H Unspecified [CPT-02415] COMP METABOLIC PANEL [CPT-93201] CBC W/DIFF [CPT-91984] HgBA1c [CPT-94786] Vitamin D 250H Unspecified [CPT-14160] Adult - Ofc Vst, EST, Level III [CPT-86310] Follow-Up Return to clinic: in 90 days for follow upClinical Visit Summary Declined Name Value Range Interpretation Code Description Data Joselin rce(s) Supporting Document(s) ID Date Data Source [id number] 11/12/2019 10:56:00 AM EDT [facility] DATE OF EXAMINATION: 11/12/2019 10:05 EDT CHEST W/IV CONTRAST HISTORY: Colon cancer. Evaluate for metastatic disease. TECHNIQUE: This CT exam was performed using the following dose reduction techniques:automatic exposure control, adjustment of mA and/or kV according to thepatient's size, and use of iterative reconstruction technique. Standard contiguous axial spiral imaging was obtained from lung apices to thelung bases with intravenous contrast administration and with coronalreformatting. FINDINGS: Lungs: Mild centrilobular emphysematous changes. No focal consolidation or massPleural space: 6 no pleural effusionsMediastinum: No lymphadenopathy or pericardial effusionBones/joints: Unremarkable No pulmonary emboli. IMPRESSION: Lowermost images reveal probable newly developed hydronephrosis. This should befurther evaluated with a CT scan of the abdomen and pelvis in this patient withknown colon cancer. This should preferably be performed with oral andintravenous contrast. Electronically signed in [id number] by: Ambrocio Laureano M.D. 11/12/2019 10:51 EDT Name Value Range Interpretation Code Description Data [facility](s) Supporting Document(s) ID Date Data Source [id number] 11/07/2019 01:24:00 PM EDT [facility] FAX Name Value Range Interpretation Code Description Data [facility](s) Supporting Document(s) GLUCOSE 82 mg/dL 74-106 [facility] BLOOD UREA NITROGEN 16 mg/dL 7-18 [facility] ital CREATININE 0.7 mg/dL 0.6-1.0 [facility] SODIUM 145 mmol/L 136-145 [facility] POTASSIUM 4.5 mmol/L 3.5-5.1 [facility] CHLORIDE 110 mmol/L 98-107 H [facility] CO2 24 mmol/L 21-32 [facility] CALCIUM 8.7 mg/dL 8.5-10.1 [facility] ANION GAP 11.0 mmol/L 5-12 [facility] GLOMERULAR FILTRATION RATE 83 mL/min [facility] GFR IS CALCULATED IN mL/min/1.73m2 GOLD L FUNCTION: >90MILDLY DECREASED: 60-89MILDY TO MODERATELY DECREASED: 45-59 MODERATELY TO SEVERELY DECREASED: 30-44SEVERELY DECREASED: 15-29RENAL FAILURE: <15 AST 25 U/L 15-37 [facility] ALT 35 U/L 12-78 [facility] ALKALINE PHOSPHATASE 66 U/L 46-116 [facility] pital TOTAL BILIRUBIN 1.2 mg/dL 0.2-1.0 H [facility] TOTAL PROTEIN 7.3 g/dl 6.4-8.2 [facility] ALBUMIN 3.6 gm/dL 3.4-5.0 [facility] ID Date Data Source [id number] 10/10/2019 10:30:00 AM EST [facility] DATE OF EXAMINATION: 10/09/2019 13:23 EST MAMMO SCREEN BILAT WITH CAD HISTORY: Screening Based on the personal and family history information your patient supplied atthe time of imaging, her lifetime risk of breast cancer estimated date by theTyrer-Cuzick model is 3.6%. If anything changes in the personal and/or familyhistory this percentage could increase or decrease. Currently, NCCN and ACSrecommended adjunctive breast MRI screening starting at age 30 for women with a> 20-25% lifetime risk of developing breast cancer. Comparison is made to prior study dated 09/11/2018. 2-D bilateral digital mammogram in the CC and MLO planes were performed withsupplemental 3-D tomosynthesis of both breasts. The images were analyzed through the latest version of the [place] ddiagnosis system. The patient states that her last clinical breast examination was not provided. Craniocaudal and oblique lateral views of the breasts were obtained. Thebreasts are composed of normal glandular tissue. There is no dominant mass,suspicious clustered calcification, or architectural distortion. IMPRESSION: No mammographic evidence of malignancy. BiRAD 1 - Negative, Routine Yearly Mammographic Follow-up Recommended. Furthermore, in patients with dense glandular tissue, supplemental imagingmodalities should be considered. 10-15% of cancers are not identified by mammography. This usually occurs whenthe mass is of the same radiographic density as the surrounding breast tissue,emphasizing the importance of breast self examination (BSE) and physicalexamination. A normal mammogram should not delay biopsy if a suspicious mass orabnormal findings are present upon physical examination. Electronically signed in PS360 by: Ambrocio Laureano M.D. 10/10/2019 10:24 EST Name Value Range Interpretation Code Description Data Joselin rce(s) Supporting Document(s) ID Date Data Source [id number] 10/09/2019 02:12:00 PM EST [facility] DATE OF EXAMINATION: 10/09/2019 13:23 EST IMPRESSION: For a detailed report please refer to the software generated [employer]. Electronically signed in PS360 by: Ambrocio Laureano M.D. 10/09/2019 14:06 EST Name Value Range Interpretation Code Description Data Joselin rce(s) Supporting Document(s) ID Date Data Source [id number] 09/06/2019 03:21:[address] [facility] Measurements & CalculationsHeight: 61 inches (5 ft. 1 in.) 154.94 cm Weight: 117 pounds 4 oz. 53.30 kg Body Mass Index (BMI): 22.23BMI Interpretation: Healthy WeightBody Surface Area (BSA): 1.51Weight Management Education Done (Nutrition/Physical Activity)Vital SignsTemperature: 97.5F oral Pulse Rate: 57 beats/minuteRespiratory Rate: 17 respirations/minuteBlood Pressure: 136/81 right arm sitting automaticO2 Saturation: 99% room airVital Signs performed by: Jennifer Richardson LPN, September 06, 2019 3:45 PMVital Signs performed by: Ariel LLAMAS, September 06, 2019 3:46 PMInitial Intake Information from: patientRoom #: 15Infectious Disease- Travel Have you or your sexual partner travelled outside of the country recently? NoSmoking, Tobacco or Smoke Exposure StatusSmoke Status: never smokerTobacco Use: NoPassive Smoke Exposure: NoMenstrual HistoryAge at Menopause: 28Comments: complete hysterectomyHealthcare HistorySince your last office visit...Have you been admitted to the hospital? NoHave you been to an emergency room (ER) or urgent care clinic? NoHave you seen another healthcare provider? Yes - urology, gastroHave you seen a [place]? [place] [facility] performed by: Jennifer Richardson LPN, September 06, 2019 3:34 PMRate Your HealthIn general, would you say your health is? Very GoodPain AssessmentAre you currently having any pain which... You would like your provider to address? No Affects your activity level? NoDepression Screening - PHQ-2Over the last two weeks, have you... Had little interest or pleasure in doing things? Not at all Been feeling down, depressed, or hopeless? Not at all PHQ-2 Score: 0Anxiety Screening - RUFINO-2Over the last two weeks, have you been... Feeling nervous, anxious, or on edge? Not at all Unable to stop or control worrying? Not at all RUFINO-2 Score: 0PRAPARE Sociodemographic Characteristics Race: White Ethnicity: Not His panic or Preferred Language: EnglishFamily and Home Address: [facility] [address] [place] [address] What is your housing situation today? I have housing Are you worried about losing your housing? NoMoney and Resources What is the highest level of school that you have finished? high school graduate Employed? No Are you seeking work? No Insurance: [employer] In the past year, have you or any family members you live with been unable to get any of the following when it was really needed? Denies Insecurity: food, utilities, clothing, child welfare assistant, phone, legal services, otherIn the past year, have you had trouble affording costs associated with health insurance (such as deductibles, co-payments, etc.)? NoSocial and Emotional Health How often do you see or talk to people that you care about and feel close to? More than 5 times a week How stressed are you? A little bitAdditional Optional Domains In the past 3 months, have you spent more than 2 nights in a row in a half-way, assisted, nursing home center or juvenile correctional facility? No Has lack of transportation kept you from medical appointments or from getting your medications? NoIn the past year, have you had trouble getting any of the following when it was really needed (check all that apply)?noneIn the past year, have you had trouble paying the costs associated with health care or medicine (such as co-payments, costs for services, prices of medicines)? NoHow confident are you that you can control and manage most of your health problems? Very confident Are you a refugee? No (Country of origin: [facility]) Do you feel physically and emotionally safe where you live? Yes In the past year, have you been afraid of a partner, ex-partner? NoScreening, Brief Intervention, & Referral to Treatment (SBIRT)Pre-Screening Questions How many times have you have 4 or more drinks in a day? 0How many times have you used an illegal drug or used a prescription medication for a non-medical reason? 0Performed by: Jennifer Richardson LPN, September 06, 2019 3:36 PMPatient History Medical History:colon cancerbladder cancerSurgical History:total hysterectomybladder removalCholecystectomyFamily History:Diabetes (Mother, Brother, Sister)Myocardial infarction ([place]) (Father)Social/Personal History: Smoking Status: never smokerChief Complaintannual examHistory of Present Illness (HPI)69 yo female here to establish care, prior patient of this provider at [facility]. Pt unfortunately has no prior records received yet and did not bring her medication list or bottle in today.Pt has multiple complex medical c onditions. Pt has urostomy in place, follows with urology in [place] annually now. Pt has concerns about nausea and vomiting over the last week or so. Denies sick exposure. Pt reports she ran out of an old medication for her "stomach" that was written by [place] provider.HPI performed by: Ariel LLAMAS, September 06, 2019 3:48 PMTransitions of Care InboundAllergy Review Patient has no known allergies.Adult Preventive CareProvider Calculated and Reviewed all Clinical Protocols for patient today. Labs/Meds/Other Counseling- Nutrition and Physical Activity:BMI Interpretation: Healthy Weight (09/06/2019) Counseling: Done (09/06/2019) Physical Activity: Done (09/06/2019)Cancer Screening Mammogram Reviewed: Today's Comments: 10/09/2019 [facility] General: Denies loss of appetite, chills, dizziness, fatigue, fever, headache, feeling ill. Eyes: Denies blurring of vision, double vision. Ears/Nose/Throat: Denies earache, nasal congestion, sore throat, swollen glands. Cardiovascular: Denies chest pain, feeling faint, elevated blood pressure. Respiratory: Denies cough, shortness of breath, wheezing. Gastrointestinal: Complains of nausea, vomiting. Denies diarrhea, pain or discomfort, blood in stool, black or tarry stools, heartburn. Genitourinary: Denies blood in urine. urostomy in place without concernSkin: Denies rash, itching. Neurologic: Denies weakness, numbness/tingling, feeling faint. Psychiatric: Denies depression, anxiety, feeling stressed. Physical ExamGeneral Appearance: well nourished, well hydrated, no acute distressEyes, External: conjunctivae and lids normal, EOMIExternal Ears: normal, no lesions or deformitiesHearing: grossly intactOtoscopy: canals clear, tympanic membranes intact, no fluid, light reflex intact bilaterallyExternal Nose: normal, no lesions or deformitiesNasal: mucosa, septum, and turbinates normal, nares patentLips/Teeth/Gums: normal dentition, no gingival inflammation, no labial lesionsPharynx: tongue normal, posterior pharynx without erythema or exudate, no thrush/aphthous ulcerRespiratory, Auscultation: clear to auscultation bilaterally; no rales, rhonchi, or wheezesRespiratory, Effort: no intercostal retractions or use of accessory musclesCardiovascular, Auscultation: S1, S2 audible; no murmur, rub, or gallop; RRRPeripheral Circulation: no clubbing, cyanosis, edema, or varicositiesAbdomen: soft, non-tender, no masses, bowel sounds normal, urostomy bag in placeGait & Station: normalSkin, Inspection: no rashes or ulcerations, raised irregular lesion on left jawlineOrientation: oriented to time, place, and personMood & Affect: no depression, anxiety, or agitationJudgment & Insight: intactCare Management Plan Transitions of CareInboundRate Your HealthIn general, would you say your health is? Very GoodAssessment & Plan Problems:Added: Vitamin D deficiency, unspecified (NXR79-P75.9) Assessment: Instructions: Remains low on Drisdol. Will send for Vitamin D3 once weekly and will repeat labs in 12 weeks.Encounter for general adult medical examination without abnormal findings (HIW14-O43.00) Assessment: Instructions: Please complete a release of information form to obtain medical records from your prior providers(s).Actinic keratosis (ICD-702.0) (WHD72-E07.0) Assessment: Instructions: Referred to [facility] for evaluation and possible excision.Actinic keratosis (ICD-702.0) (ZQU85-I43.0) Assessment: Instructions: Referred to [facility] for evaluation and possible excision.Nausea with vomiting, unspecified (ICD-787.01) (LVN31-B20.2) Assessment: Instructions: Call your [place] specialist to discuss. Unable to write for prior medication as [place] pharmacy has never filled.Vitamin D deficiency, unspecified (ZNX07-S30.9) Assessment: Recent lab shows no improvement with Drisdol. Rather than continuing that further as was prescribed by [facility] provider, recommend switching to alternate composition Vitamin D.Patient Instructions/Care Plan: Vitamin D deficiency- unspecified: Remains low on Drisdol. Will send for Vitamin D3 once weekly and will repeat labs in 12 weeks.Encounter for general adult medical examination without abnormal findings: Please complete a release of information form to obtain medical records from your prior providers(s).Actinic keratosis: Referred to [facility] for evaluation and possible excision.Actinic keratosis: Referred to [facility] for evaluation and possible excision.Nausea with vomiting- unspecified: Call your [place] specialist to discuss. Unable to write for prior medication as [place] pharmacy has never filled. Plan developed in collaboration with patient and/or familyMedication Changes:Added: LEVOTHYROXINE SODIUM 75 MCG ORAL TABLET-1 tab po daily in am on empty stomachROPINIROLE HCL 1 MG ORAL TABLET-2 tabs po 1 to 3 hours before bedtimeNew Prescription:VITAMIN D3 1.25 MG (89428 UT) ORAL CAPSULE-Take 1 capsule by mouth once weekly Qty: 12[Capsule] Refills: 0 Method: ElectronicOrders:Vitamin D 250H Unspecified [CPT-59116] Surgical Consult [CPT-74671] Preventive, New, (65+) [CPT-86565] Follow-Up Return to clinic: in 6 months for follow upMedications:VITAMIN D3 1.25 MG (18215 UT) ORAL CAPSULE (CHOLECALCIFEROL) Take 1 capsule by mouth once weekly #12[Capsule] x 0 Route:ORAL Entered and Authorized by: Ariel LLAMAS [facility] [address] [place] [address] Fax: Note to Pharmacy: Route: ORAL; Indications: VITAMIN D DEFICIENCY, UNSPECIFIED RxID: [id number] signed by Ariel LLAMAS on 09/12/2019 at 11:27 AM Name Value Range Interpretation Code Description Data Joselin rce(s) Supporting Document(s) ID Date Data Source [id number] 08/28/2019 04:05:00 PM [facility] Name Value Range Interpretation Code Description Data Joselin rce(s) Supporting Document(s) VITAMIN D, 25-HYDROXY 23.5 ng/mL 30.0-100.0 [facility] Vitamin D deficiency has been defined by the [place] ofMedicine and an Endocrine Society practice guideline as alevel of serum 25-OH vitamin D less than 20 ng/mL (1,2).The Endocrine Society went on to further define vitamin Dinsufficiency as a level between 21 and 29 ng/mL (2).1. IOM ([place] of Medicine). 2010. Dietary reference intakes for calcium and D. [place]: The National Academies Press.2. Rhoda Ramos, Colleen RAYMOND, et al. Evaluation, treatment, and prevention of vitamin D deficiency: an Endocrine Society clinical practice guideline. JCEM. 2010; 96(7):191- .Performed at: RN - [facility] [address] [id number] Director: Rossi Bryant MD, Phone: [phone] ID Date Data Source [id number] 08/28/2019 04:05:00 PM EST [facility] Name Value Range Interpretation Code Description Data Joselin rce(s) Supporting Document(s) Vitamin D, 25-Hydroxy 23.5 ng/mL 30.0-100.0 Below low normal [facility] Vitamin D deficiency has been defined by the [place] of[place]icine and an Endocrine Society practice guideline as alevel of serum 25-OH vitamin D less than 20 ng/mL (1,2).The Endocrine Society went on to further define vitamin Dinsufficiency as a level between 21 and 29 ng/mL (2).1. IOM ([place] of Medicine). 2010. Dietary reference intakes for calcium and D. [place]: The National Academies Press.2. Tianna PRITCHETT, Rhoda FONG, Colleen RAYMOND, et al. Evaluation, treatment, and prevention of vitamin D deficiency: an Endocrine Society clinical practice guideline. JCEM. 2010; 96(7):191-. Procedure Vital Signs ID Date Data Source UNK Name Value Range Interpretation Code Description Data Source(s) Body height 61 [in_i] 61 [in_i] USHA ([facility]) Body weight 1865.6 [oz_av] 1865.6 [oz_av] ATHEN A ([facility]) Systolic blood pressure 136 mm[Hg] 136 mm[Hg] A THENA ([facility]) Body height 61 [in_i] 61 [in_i] USHA ([facility]) Diastolic blood pressure 75 mm[Hg] 75 mm[Hg] USHA ([facility]) Body weight 1876 [oz_av] 1876 [oz_av] USHA ([facility]) Systolic blood pressure 136 mm[Hg] 136 mm[Hg] Kelly TOMPKINS ([facility]) Body height 61 [in_i] 61 [in_i] USHA ([facility]) Diastolic blood pressure 81 mm[Hg] 81 mm[Hg] USHA ([facility])
[2020-09-11 14:56] LABS: ALBUMIN 1.9 GM/DL (3.2-5.2); BILIRUBIN,DIRECT 0.3 MG/DL (0.0-0.2); BILIRUBIN,TOTAL 0.6 MG/DL (0.2-1.0); CALCIUM LEVEL 8.7 MG/DL (8.8-10.2); CREATININE FOR GFR 1.46 MG/DL (0.55-1.30); GLOMERULAR FILTRATION RATE 37.6 (>39); POTASSIUM SERUM 4.2 MEQ/L (3.5-5.1); TOTAL PROTEIN 5.5 GM/DL (6.4-8.2)
--- NOTE | 2020-09-11 15:25 | REP ---
INDICATION: leukocytosis. COMPARISON: No comparison study. TECHNIQUE: Portable upright AP chest radiograph. FINDINGS: The lungs are well inflated and free of infiltrate. Pleural angles are sharp. Heart size is normal. Pulmonary vasculature is not increased. EKG monitoring electrodes are seen. There are clips in right upper quadrant of the abdomen. IMPRESSION: No active disease. <Electronically signed by Eusebio Anand > 09/11/20 [id number]
[2020-09-11 16:33] LABS: RSV AMPLIFICATION NEGATIVE (NEGATIVE)
[2020-09-11] MEDS ORDERED: ISOVUE-370 76% 100ML VIAL As Ordered ONE (17:09)
--- NOTE | 2020-09-11 18:26 | REPVR ---
PROCEDURE INFORMATION: Exam: CT Abdomen And Pelvis With Contrast Exam date and time: 09/11/2020 4:07 PM Age: 70 years old Clinical indication: Abdominal pain; Additional info: Abd pain, ? ugi bleed TECHNIQUE: Imaging protocol: Computed tomography of the abdomen and pelvis with intravenous contrast. Radiation optimization: All CT scans at this facility use at least one of these dose optimization techniques: automated exposure control; mA and/or kV adjustment per patient size (includes targeted exams where dose is matched to clinical indication); or iterative reconstruction. Contrast material: ISOVUE 370; Contrast volume: 100 ml; Contrast route: INTRAVENOUS (IV); COMPARISON: CR Spine. Lumbosacral, complete 09/10/2020 1:22 PM FINDINGS: Lungs: The lung bases are unremarkable. Mediastinal space: There is a hiatal hernia with thickening of the distal esophageal wall and possible varices series 201, image 17 -26. Liver: There are no focal liver lesions. Gallbladder and bile ducts: Cholecystectomy. Pancreas: The pancreas is normal for age. Spleen: The spleen is normal. Adrenal glands: There is mild prominence of both adrenal glands without focal masses identified. Kidneys and ureters: Both kidneys are enlarged and there are striated nephrograms. Stomach and bowel: There is no evidence of intestinal obstruction however there diffuse appears to be mild diffuse colonic wall thickening but the colon is not distended which may in part account for this appearance. There is a distal colonic anastomosis in the pelvis. Appendix: No evidence of appendicitis. Intraperitoneal space: Unremarkable. No free air. No significant fluid collection. Vasculature: No abdominal aortic aneurysm. There is moderate atherosclerotic calcification. Lymph nodes: Unremarkable. No enlarged lymph nodes. Urinary bladder: There has been a cystectomy, and there is a right abdominal ureterostomy/ileostomy. Reproductive: Unremarkable as visualized. Bones/joints: There is sclerosis of the sacroiliac joints. No further focal lytic or sclerotic bone lesions. Soft tissues: Edema within the dependent soft tissues of the back. IMPRESSION: 1. Striated nephrograms with bilateral renal enlargement can be due to acute pyelonephritis, acute obstruction, tubular obstruction or a hypotensive event among other etiologies. 2. There is mild diffuse colonic wall thickening which could be due to colitis however there is no pericolonic inflammation. Electronically signed by: Jenny Mas On 09/11/2020 18:26:46 PM
[2020-09-11] MEDS ORDERED: MAALOX 30 ML SUSP *UDC PO PRN (19:30)
[2020-09-11] MEDS ORDERED: MOM 30ML SUSPENSION UDC PO PRN (19:30)
[2020-09-11] MEDS ORDERED: ONDANSETRON 4 MG TAB PO PRN (19:30)
--- OUTSIDE RECORDS SUMMARY | 2020-09-11 19:51 | CCD ---
Author Author [facility] Organization [facility] Address Unknown Phone Unavailable Care Team Providers Care Heavy Equipment Rental Manager Name Role Phone Shreya, M Sammi PA-C [...] PA Unavailable Unavailable NAVA, DIANA LUIS FELIPE CURED MEATS SUPERVISOR-C, MSN Unavailable Unavailab le NAVA, DIANA LUIS FELIPE CURED MEATS SUPERVISOR-C, MSN Unavailable Unavailab le NAVA, DIANA LUIS FELIPE CURED MEATS SUPERVISOR-C, MSN Unavailable Unavailab le NAVA, DIANA LUIS FELIPE CURED MEATS SUPERVISOR-C, MSN Unavailable Unavailab le NAVA, DIANA LUIS FELIPE CURED MEATS SUPERVISOR-C, MSN Unavailable Unavailab le NAVA, DIANA LUIS FELIPE CURED MEATS SUPERVISOR-C, MSN Unavailable Unavailab le NAVA, DIANA LUIS FELIPE CURED MEATS SUPERVISOR-C, MSN Unavailable Unavailab le NAVA, DIANA LUIS FELIPE CURED MEATS SUPERVISOR-C, MSN Unavailable Unavailab le NAVA, DIANA LUIS FELIPE CURED MEATS SUPERVISOR-C, MSN Unavailable Unavailab le NAVA, DIANA LUIS FELIPE CURED MEATS SUPERVISOR-C, MSN Unavailable Unavailab le NAVA, DIANA LUIS FELIPE CURED MEATS SUPERVISOR-C, MSN Unavailable Unavailab le NAVA, DIANA LUIS FELIPE CURED MEATS SUPERVISOR-C, MSN Unavailable Unavailab le NAVA, DIANA LUIS FELPIE CURED MEATS SUPERVISOR-C, MSN Unavailable Unavailab le NAVA, DIANA LUIS FELIPE CURED MEATS SUPERVISOR-C, MSN Unavailable Unavailab le NAVA, DIANA LUIS FELIPE CURED MEATS SUPERVISOR-C, MSN Unavailable Unavailab le NAVA, DIANA LUIS FELIPE CURED MEATS SUPERVISOR-C, MSN Unavailable Unavailab le NAVA, DIANA LUIS FELIPE CURED MEATS SUPERVISOR-C, MSN Unavailable Unavailab le NAVA, DIANA LUIS FELIPE CURED MEATS SUPERVISOR-C, MSN Unavailable Unavailab le NAVA, DIANA LUIS FELIPE CURED MEATS SUPERVISOR-C, MSN Unavailable Unavailab le NAVA, DIANA LUIS FELIPE CURED MEATS SUPERVISOR-C, MSN Unavailable Unavailab le NAVA, DIANA LUIS FELIPE CURED MEATS SUPERVISOR-C, MSN Unavailable Unavailab le NAVA, DIANA LUIS FELIPE CURED MEATS SUPERVISOR-C, MSN Unavailable Unavailab le NAVA, DIANA LUIS FELIPE CURED MEATS SUPERVISOR-C, MSN Unavailable Unavailab le NAVA, DIANA LUIS FELIPE CURED MEATS SUPERVISOR-C, MSN Unavailable Unavailab le NAVA, DIANA LUIS FELIPE CURED MEATS SUPERVISOR-C, MSN Unavailable Unavailab le NAVA, DIANA LUIS FELIPE CURED MEATS SUPERVISOR-C, MSN Unavailable Unavailab le NAVA, DIANA LUIS FELIPE CURED MEATS SUPERVISOR-C, MSN Unavailable Unavailab le NAVA, DIANA LUIS FELIPE CURED MEATS SUPERVISOR-C, MSN Unavailable Unavailab le NAVA, DIANA LUIS FELIPE CURED MEATS SUPERVISOR-C, MSN Unavailable Unavailab le NAVA, DIANA LUIS FELIPE CURED MEATS SUPERVISOR-C, MSN Unavailable Unavailab le NAVA, DIANA LUIS FELIPE CURED MEATS SUPERVISOR-C, MSN Unavailable Unavailab le NAVA, DIANA LUIS FELIPE CURED MEATS SUPERVISOR-C, MSN Unavailable Unavailab le NAVA, DIANA LUIS FELIPE CURED MEATS SUPERVISOR-C, MSN Unavailable Unavailab le NAVA, DIANA LUIS FELIPE CURED MEATS SUPERVISOR-C, MSN Unavailable Unavailab le NAVA, DIANA LUIS FELIPE CURED MEATS SUPERVISOR-C, MSN Unavailable Unavailab le NAVA, DIANA LUIS FELIPE CURED MEATS SUPERVISOR-C, MSN Unavailable Unavailab le NAVA, DIANA LUIS FELIPE CURED MEATS SUPERVISOR-C, MSN Unavailable Unavailab le NAVA, DIANA LUIS FELIPE CURED MEATS SUPERVISOR-C, MSN Unavailable Unavailab le NAVA, DIANA LUIS FELIPE CURED MEATS SUPERVISOR-C, MSN Unavailable Unavailab le NAVA, DIANA LUIS FELIPE CURED MEATS SUPERVISOR-C, MSN Unavailable Unavailab le NAVA, DIANA LUIS FELIPE CURED MEATS SUPERVISOR-C, MSN Unavailable Unavailab le NAVA, DIANA LUIS FELIPE CURED MEATS SUPERVISOR-C, MSN Unavailable Unavailab le ART, TOMASA ARIEL [...] Kelly ELIZABETH Unavailable Unavailable Veronika MANCERA Unavailable [phone] Veronika MANCERA Unavailable [phone] Veronika MANCERA Unavailable [phone] Veronika MANCERA Unavailable [phone] Veronika MANCERA Unavailable [phone] Deanna, A Sammi CURED MEATS SUPERVISOR Unavailable Unavailable Deanna, A Sammi CURED MEATS SUPERVISOR Unavailable Unavailable Deanna, A Sammi CURED MEATS SUPERVISOR Unavailable Unavailable Deanna, A Sammi CURED MEATS SUPERVISOR Unavailable Unavailable Deanna, A Sammi CURED MEATS SUPERVISOR Unavailable Unavailable Deanna, A Sammi CURED MEATS SUPERVISOR Unavailable Unavailable Deanna, A Sammi CURED MEATS SUPERVISOR Unavailable Unavailable Deanna, A Sammi CURED MEATS SUPERVISOR Unavailable Unavailable Deanna, A Sammi CURED MEATS SUPERVISOR Unavailable Unavailable Deanna, A Sammi CURED MEATS SUPERVISOR Unavailable Unavailable Deanna, A Sammi CURED MEATS SUPERVISOR Unavailable Unavailable Deanna, A Sammi CURED MEATS SUPERVISOR Unavailable Unavailable Deanna, A Sammi CURED MEATS SUPERVISOR Unavailable Unavailable Deanna, A Sammi CURED MEATS SUPERVISOR Unavailable Unavailable Deanna, A Sammi CURED MEATS SUPERVISOR Unavailable Unavailable Deanna, A Sammi CURED MEATS SUPERVISOR Unavailable Unavailable Deanna, A Sammi CURED MEATS SUPERVISOR Unavailable Unavailable Deanna, A Sammi CURED MEATS SUPERVISOR Unavailable Unavailable Deanna, A Sammi CURED MEATS SUPERVISOR Unavailable Unavailable Deanna, A Sammi CURED MEATS SUPERVISOR Unavailable Unavailable Deanna, A Sammi CURED MEATS SUPERVISOR Unavailable Unavailable Deanna, A Sammi CURED MEATS SUPERVISOR Unavailable Unavailable Deanna, A Sammi CURED MEATS SUPERVISOR Unavailable Unavailable Deanna, A Sammi CURED MEATS SUPERVISOR Unavailable Unavailable Deanna, A Sammi CURED MEATS SUPERVISOR Unavailable Unavailable Deanna, A Sammi CURED MEATS SUPERVISOR Unavailable Unavailable Deanna, A Sammi CURED MEATS SUPERVISOR Unavailable Unavailable Deanna, A Sammi CURED MEATS SUPERVISOR Unavailable Unavailable Deanna, A Sammi CURED MEATS SUPERVISOR Unavailable Unavailable Deanna, A Sammi CURED MEATS SUPERVISOR Unavailable Unavailable Deanna, A Sammi CURED MEATS SUPERVISOR Unavailable Unavailable Deanna, A Sammi CURED MEATS SUPERVISOR Unavailable Unavailable Deanna, A Sammi CURED MEATS SUPERVISOR Unavailable Unavailable Deanna, A Sammi CURED MEATS SUPERVISOR Unavailable Unavailable Deanna, A Sammi CURED MEATS SUPERVISOR Unavailable Unavailable Deanna, A Sammi CURED MEATS SUPERVISOR Unavailable Unavailable Deanna, A Sammi CURED MEATS SUPERVISOR Unavailable Unavailable Deanna, A Sammi CURED MEATS SUPERVISOR Unavailable Unavailable Deanna, A Sammi CURED MEATS SUPERVISOR Unavailable Unavailable Deanna, A Sammi CURED MEATS SUPERVISOR Unavailable Unavailable Deanna, A Sammi CURED MEATS SUPERVISOR Unavailable Unavailable Deanna, A Sammi CURED MEATS SUPERVISOR Unavailable Unavailable Deanna, A Sammi CURED MEATS SUPERVISOR Unavailable Unavailable Deanna, A Sammi CURED MEATS SUPERVISOR Unavailable Unavailable ELIZABETH, A CECILIA Unavailable Unavailable [...] is protected by Article 27-F of the [facility] Public Health law. If you continue you may have access to information: Regarding HIV / AIDS; Provided by facilities licensed or operated by the [facility] Office of Mental Health; or Provided by the [facility] Office for People With Developmental Disabilities. If such information is present, then the following [facility] mandated warning applies: This information has [...] law may result in a fine or usp sentence or both. A general authorization for the release of medical or other information is NOT sufficient authorization for further disc losure. Encounters Encounter Providers Location Date Indications Data Source(s ) Emergency Attender: FERCHO Brookser: ARIEL JACOBS 09/01/2020 06:51:00 PM EST - 09/01/2020 08:11:00 PM [facility] pital Patient discharged. Outpatient Attender: ARIEL EPPERSONCReferrer: CATIE JACOBS EMERGENCY ROOM-LABOTHPROV 07/28/2020 01:06:00 PM EST - 07/28/2020 01:06:00 PM [facility] REYNALDO Pratt: [address], [place] [address], Ph. Attender: ARIEL JACOBS [facility] Medical 07/17/2020 12:00:00 AM EST [facility] ([facility]) Outpatient Attender: ARIEL Bennettferrer: CATIE ART RPA-C EMERGENCY ROOM-LABOTHPROV 07/15/2020 11:53:00 AM EST - 07/15/2020 11:53:00 AM EST [facility] ENTER 06/16/2020 12:00:00 AM EST eCW1 ([facility]) Outpatient Attender: ARIEL EPPERSONC [facility] 05/16/2020 09:34:01 AM EDT [facility] Outpatient Attender: NOLBERTO HAJI [facility] 04/16 03:50:01 PM EDT [facility] Outpatient Attender: ARIEL EPPERSONC [facility] 05/08/2020 03:49:59 PM EDT [facility] Outpatient Attender: NOLBERTO HAJI ALL 04/15 02:31:00 PM EDT [facility] Outpatient Attender: NOLBERTO HAJI ALL 03/16 03:49:07 PM EDT [facility] Outpatient Attender: NOLBERTO HAJI ALL 02/12 05:27:01 PM EDT [facility] Outpatient Attender: ARIEL ART RPA-C ALL 02/27/2020 07:38:02 AM EDT [facility] Outpatient Attender: NOLBERTO HAJI ALL 02/12 07:38:01 AM EDT [facility] Outpatient Attender: ARIEL Lalrer: CATIE ART RPA-C EMERGENCY ROOM-LABOTHPROV 02/20/2020 08:59:00 AM EDT - 02/20/2020 08:59:00 AM EDT [facility] Outpatient Attender: ARIEL ART RPA-C ALL 02/19/2020 02:16:00 PM EDT [facility] Outpatient Attender: NOLBERTO HAJI ALL 12/13 12:30:03 PM EDT [facility] Outpatient Attender: ARIEL ART RPA-C ALL 12/24/2019 11:26:02 AM EDT [facility] Outpatient Attender: NOLBERTO HAJI ALL 11/2019 02:30:03 PM EDT [facility] Outpatient Attender: CECILIA Chao er: CECILIA ELIZABETHReferrer: ARIEL ART RPA-C 11/12/2019 10:00:00 AM EDT [facility] Outpatient Attender: CECILIA Chao er: CECILIA ELIZABETHReferrer: ARIEL ART RPA-C EMERGENCY ROOM-LABOTHPROV 11/07/2019 12:13:00 PM EDT - 11/07/2019 12:13:[address] [facility] C ENTER 10/11/2019 12:00:00 AM EST eCW1 ([facility]) Outpatient Attender: Sammi Huerta FNPReferrer: ARIEL MIDDLETON RPA-C 10/09/2019 04:14:00 PM EST - 10/09/2019 04:14:[address] [facility] C ENTER 10/05/2019 12:00:00 AM EST eCW1 ([facility]) Outpatient Attender: ARIEL ART RPA-C ALL 10/03/2019 12:06:02 PM [facility] Outpatient Attender: NOLBERTO HAJI ALL 09/15 12:05:02 PM [facility] Outpatient Attender: ARIEL ART RPA-C ALL 09/12/2019 11:28:04 AM [facility] Outpatient Attender: NOLBERTO HAJI ALL 08/16 11:28:03 AM [facility] Outpatient Attender: ARIEL ART RPA-C ALL 09/12/2019 11:24:01 AM [facility] Outpatient [facility] 08/29/2019 12:00:00 AM EST eCW1 ([facility]) Outpatient Attender: Sammi SIGALACReferrer: ARIEL ART RPA-C EMERGENCY ROOM-LAB 08/27/2019 12:56:00 PM EST - 08/27/2019 12:56:00 PM [facility] ENTER 08/21/2019 12:00:00 AM EST eCW1 ([facility]) Outpatient Attender: ARIEL EPPERSONCReferrer: CATIE JACOBS EMERGENCY ROOM-RIVCLI 06/12/2019 01:18:00 PM EDT - 06/12/2019 01:18:00 PM [facility] Outpatient Attender: ARIEL JACOBS 08/16 02:00:00 PM EST - 09/11/2018 02:00:00 PM [facility] Emergency Attender: SOSA MANCERAReferrer: VENU PAULINO EMERGENCY ROOM-ER 11/07/2016 05:51:00 PM EDT - 11/08/2016 01:05:00 AM [facility] Outpatient Attender: VENU PAULINOReferr er: LUIS FELIPE SINGER, VENU EMERGENCY ROOM-MAMMO 02/23/2016 08:53:00 AM EDT [facility] Insurance Providers Payer name Policy type / Coverage type Policy ID Covered libertarian ID Covered libertarian's relationship to rosenberg Policy [place] Plan Information MEDICARE COMPLETE [id number] SP [id number] MEDICARE COMPLETE [id number] SP [id number] Bahoui [id number] S MEB [id number] Bah[place]i [id number] S [id number] [id number] [employer] MEDICARE [id number] S [id number] [employer] [id number] S [id number] [id number] ANSI-Commercial [id number] ANSI-Commercial [id number] ANSI-Commercial [id number] ANSI-Commercial [id number] ANSI-Commercial [id number] ANSI-Commercial [id number] ANSI-Commercial [id number] ANSI-Commercial [id number] ANSI-Commercial [id number] ANSI-Commercial [id number] ANSI-Commercial [id number] ANSI-Commercial [id number] ANSI-Commercial [id number] ANSI-Commercial [id number] MEDICARE COMPLETE [id number] SP [id number] [place] PPO 302/[id number] SP [id number] [employer] [place] [id number] S [id number] Problems, Conditions, and Diagnoses Code Display Name Description Problem Type Effective Dates Data Source(s) 840627167 History of malignant neoplasm of colon H istory of Malignant Neoplasm of Colon Problem 07/29/2020 12:00:00 AM EST [facility] ([facility]) V85.1 BMI 21.0-21.9 BMI 21.0-21.9 05/16/2020 09:33:00 AM EDT [facility] [id number] Hypothyroidism, unspecified Hypothyroidism, unspecifie d 02/27/2020 07:37:00 AM EDT [facility] Z85.038 Personal history of other malignant neop lasm of large intestine History of malignant neoplasm of colon 02/19/2020 02:14:11 PM EDT No [facility] V45.86 Bariatric surgery status Bariatric surgery status 02/19/2020 02:14:11 PM EDT [facility] since 2003 or 2004 [id number] Type 2 diabetes mellitus without complic ations Type 2 diabetes mellitus without complications 02/19/2020 02:14:11 PM EDT No [facility] diet controlled since 2003 [id number] Finding of gastrointestinal device Finding of Ga strointestinal Device Problem 02/19/2020 12:00:00 AM EDT [facility] ([facility]) [id number] Type 2 diabetes mellitus without complic ation Type 2 Diabetes Mellitus without Complication Problem 02/19/2020 12:00:00 AM EDT [facility] ([facility]) 08548930 Hypothyroidism Hypothyroidism Problem 02/19/2020 12:00: 00 AM EDT [facility] ([facility]) Z93.6 Other artificial openings of urinary tract status Uros dasia present 12/24/2019 11:25:23 AM EDT [facility] [id number] Urostomy present Urostomy Present Problem 12/24/2019 12 :00:00 AM EDT [facility] ([facility]) M85.89 Other specified disorders of bone densit y and structure, multiple sites Other specified disorders of bone density and structure, multiple sites 10/03/2019 12:04:04 PM [facility] [id number] Bone density finding Bone Density Finding Problem 10/03/2019 12:00:00 AM EST [facility] ([facility]) 787.01 Nausea with vomiting, unspecified Nausea with vomiting , unspecified 09/12/2019 11:27:25 AM [facility] L57.0 Actinic keratosis Actinic keratosis 09/12/2019 11:22:13 AM [facility] 16688740 Vitamin D deficiency, unspecified Vitamin D deficiency , unspecified 09/12/2019 11:22:13 AM [facility] 375486084 Encounter for general adult medical examination without abnormal findings Encounter for general adult medical exam ination without abnormal findings 09/12/2019 11:22:13 AM [facility] [id number] SNOMED CT Concept SNOMED CT Concept Problem 09/06 12:00:00 AM EST - 07/29/2020 12:00:00 AM EST [facility] ([facility]) 528159088 Actinic keratosis Actinic Keratosis Problem 09/06 12:00:00 AM EST [facility] ([facility]) 04499023 Vitamin D deficiency Vitamin D Deficiency Problem 09/06/2019 12:00:00 AM [facility] ([facility]) Y93.89 Activity, other specified ACTIVITY, OTHER SPECIFIED Di agnosis 09/01/2020 06:51:00 PM [facility] Y92.[address] in unspeci fied non-institutional (private) residence as the place of occurrence of the external cause UNSP PLACE IN UNSP NON-INSTITUT (PRIVATE) RESIDENC Diagnosis 09/01/2020 06:51:00 PM [facility] W22.8XXA Striking against or struck by other obje cts, initial encounter STRIKING AGAINST OR STRUCK BY OTHER OBJECTS, INIT Diagnosis 09/01/2020 06:51:00 PM [facility] 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 Diagnosis 09/01/2020 06:51:00 PM [facility] l Z87.891 Personal history of nicotine dependence PERSONAL HISTORY OF NICOTINE DEPENDENCE Diagnosis 09/01/2020 06:51:00 PM [facility] l M54.31 Sciatica, right side SCIATICA, RIGHT SIDE Diagnosis 09/01/2020 06:51:00 PM [facility] S70.11XA Contusion of right thigh, initial encoun ter CONTUSION OF RIGHT THIGH, INITIAL ENCOUNTER Diagnosis 09/01/2020 06:51:00 PM [facility] l S70.01XA Contusion of right hip, initial encounte r CONTUSION OF RIGHT HIP, INITIAL ENCOUNTER Diagnosis 09/01/2020 06:51:00 PM [facility] l M25.551 Pain in right hip PAIN IN RIGHT HIP Diagnosis 09/01 06:51:00 PM [facility] R17 Unspecified jaundice UNSPECIFIED JAUNDICE Diagnosis 07/28/2020 01:06:00 PM [facility] E55.9 Vitamin D deficiency, unspecified VITAMIN D DEFI CIENCY, UNSPECIFIED Diagnosis 07/15/2020 11:53:00 AM [facility] E11.9 Type 2 diabetes mellitus without complic ations TYPE 2 DIABETES MELLITUS WITHOUT COMPLIC Diagnosis 07/15/2020 11:53:00 AM [facility] E03.9 Hypothyroidism, unspecified HYPOTHYROIDISM, UNSPECIFIE D Diagnosis 07/15/2020 11:53:00 AM [facility] R11.2 Nausea with vomiting, unspecified NAUSEA WITH VO MITING, UNSPECIFIED Diagnosis 02/20/2020 08:59:00 AM [facility] M85.89 Other specified disorders of bone densit y and structure, multiple sites OTH DISRD OF BONE DENSITY AND STRUCTURE, Diagnosis 02/20/2020 08:59:00 AM [facility] Z93.6 Other artificial openings of urinary tra ct status OTHER ARTIFICIAL OPENINGS OF URINARY TRA Diagnosis 02/20/2020 08:59:00 AM [facility] pital Z98.84 Bariatric surgery status BARIATRIC SURGERY STATUS Diag nosis 02/20/2020 08:59:00 AM [facility] Z85.038 Personal history of other malignant neop lasm of large intestine PERSONAL HISTORY OF MALIGNANT NEOPLASM OF LARGE INTESTINE Diagnosis 02/19 08:59:00 AM [facility] C18.9 Malignant neoplasm of colon, unspecified MALIGNANT NEOPLASM OF COLON, UNSPECIFIED Diagnosis 11/12/2019 02:44:00 PM EDT [facility] l Z12.31 Encounter for screening mammogram for ma lignant neoplasm of breast ENCNTR SCREEN MAMMOGRAM FOR MALIGNANT NEOPLASM OF BREAST Diagnosis 09/16 04:14:00 PM [facility] Results ID Date Data Source [id number] 09/03/2020 12:05:00 PM [facility] Patient: MAGGIE GARCIA Observatio n Report - [facility]VisitID: [id number] [place] [address] [phone], FRegistradelaware [facility] Date/Time: 09/01/2020 16:08 Weight:48.9 kg (S). Height/Length:61 [...] 09/02/2020 19:25) Addenda for MAGGIE GARCIA VisitID: [id number] Date: 09/01/2020 09/03/2020 12:03Pt called asking for [...] Name Value Range Interpretation Code Description [facility] Supporting Document(s) ID Date Data Source [id number] 09/02/2020 08:10:00 PM [facility] Patient: MAGGIE GARCIA Report - [facility].VisitID: [id number] [place] [address] [phone], FRegistration Date/Time: 09/01/2020 16:08 Weight:48.9 kg (S). [...] Name Value Range Interpretation Code Description Data [facility](s) Supporting Document(s) ID Date Data Source [id number] 09/01/2020 07:50:00 PM EST [facility] [...] Name Value Range Interpretation Code Description Data [facility](s) Supporting Document(s) ID Date Data Source [id number] 09/01/2020 07:49:[address] [facility] [address] SCAN OF THE PELVIS DATE [...] Name Value Range Interpretation Code Description Data [facility](s) Supporting Document(s) ID Date Data Source [id number] 07/28/2020 01:50:00 PM [facility] l FAX [phone] Name Value Range Interpretation Code Description Data [facility](s) Supporting Document(s) GLUCOSE 79 mg/dL 74-106 [facility] BLOOD UREA NITROGEN 19 mg/dL 7-18 [facility] ital CREATININE 0.8 mg/dL 0.6-1.0 [facility] SODIUM 141 mmol/L 136-145 [facility] POTASSIUM 4.2 mmol/L 3.5-5.1 [facility] CHLORIDE 106 mmol/L 98-107 [facility] CO2 27 mmol/L 21-32 [facility] CALCIUM 9.8 mg/dL 8.5-10.1 [facility] ANION GAP 8.0 mmol/L 5-12 [facility] GLOMERULAR FILTRATION RATE 71 mL/min [facility] GFR IS CALCULATED IN mL/min/1.73m2 GOLD L FUNCTION: >90MILDLY DECREASED: 60-89MILDY TO MODERATELY DECREASED: 45-59 MODERATELY TO SEVERELY DECREASED: 30-44SEVERELY DECREASED: 15-29RENAL FAILURE: <15 AST 24 U/L 15-37 [facility] ALT 41 U/L 12-78 [facility] ALKALINE PHOSPHATASE 68 U/L 46-116 [facility] pital TOTAL BILIRUBIN 0.9 mg/dL 0.2-1.0 [facility] TOTAL PROTEIN 6.5 g/dl 6.4-8.2 [facility] ALBUMIN 3.3 gm/dL 3.4-5.0 [facility] ID Date Data Source [id number] 07/15/2020 12:03:00 PM EST [facility] ([facility]) Name Value Range Interpretation Code Description Data Joselin rce(s) Supporting Document(s) VD25 41.8 NG/mL 30.0-100.0 Vd25 [facility] ([facility]) ID Date Data Source [id number] 07/15/2020 12:03:00 PM EST [facility] ([facility]) Name Value Range Interpretation Code Description Data Joselin rce(s) Supporting Document(s) chol 157 mg/dL 0-200 Chol [facility] ([facility]) zzzldl 46 mg/dL 0-100 Zzzldl [facility] ([facility]) chdl 0.0-5.0 Chdl [facility] ([facility]) trig 61 mg/dL 0-150 Trig [facility] ([facility]) HDL 99 mg/dL 40-60 Above high normal Hdl [facility] ([facility]) ID Date Data Source [id number] 07/15/2020 12:03:00 PM EST [facility] ([facility]) Name Value Range Interpretation Code Description Data Joselin rce(s) Supporting Document(s) glu 83 mg/dL 74-106 Glu [facility] ([facility]) BUN 16 mg/dL 7-18 Bun [facility] ([facility]) K 4.8 mmol/L 3.5-5.1 K [facility] ([facility]) Na 148 mmol/L 136-145 Above high normal Na [facility] ([facility]) cL 112 mmol/L 98-107 Above high normal Cl [facility] ([facility]) cre 0.8 mg/dL 0.6-1.0 Cre [facility] ([facility]) CO2 25 mmol/L 21-32 Co2 [facility] ([facility]) AST 32 U/L 15-37 Ast [facility] ([facility]) Ca 9.2 mg/dL 8.5-10.1 Ca [facility] ([facility]) gap 11.0 mmol/L 5-12 Gap [facility] ([facility] [facility] GFR 71 mL/min Gfr [facility] ([facility]) TP 7.0 g/dL 6.4-8.2 Tp [facility] ([facility]) tbili 1.4 mg/dL 0.2-1.0 Above high normal Tbili [facility] ([facility]) alb 3.6 gm/dL 3.4-5.0 Alb [facility] ([facility]) ALT 40 U/L 12-78 Alt [facility] ([facility]) alk 76 U/L 46-116 Alk [facility] ([facility]) ID Date Data Source [id number] 07/15/2020 12:03:00 PM EST [facility] ([facility]) Name Value Range Interpretation Code Description Data Joselin rce(s) Supporting Document(s) TSH 1.89 uIU/mL 0.36-3.74 Tsh [facility] ([facility]) ID Date Data Source [id number] 07/15/2020 12:03:00 PM EST [facility] ([facility]) Name Value Range Interpretation Code Description Data Joselin rce(s) Supporting Document(s) EAG 85.3 mg/dL Eag [facility] ([facility]) ID Date Data Source [id number] 07/15/2020 12:03:00 PM EST [facility] ([facility]) Name Value Range Interpretation Code Description Data Joselin rce(s) Supporting Document(s) Hemoglobin A1c/Hemoglobin.total in Blood 4.6 % 3.8-5.6 Ha1C [facility] ([facility]) ID Date Data Source [id number] 07/15/2020 12:03:00 PM EST [facility] ([facility]) Name Value Range Interpretation Code Description Data Joselin rce(s) Supporting Document(s) umax 59.5 mg/L 1.3-20.0 Above high normal Umax [facility] ([facility]) ucre 52.5 mg/dL Ucre [facility] ([facility]) mc 113 ug/mg Mc [facility] ([facility]) ID Date Data Source [id number] 07/15/2020 12:03:00 PM EST [facility] ([facility]) Name Value Range Interpretation Code Description Data Joselin rce(s) Supporting Document(s) HGB 14.2 gm/dL 12.0-16.0 Hgb [facility] ([facility]) WBC 6.0 K/mm3 4.0-10.0 Wbc [facility] ([facility]) RBC 4.50 M/mm3 4.00-5.50 Rbc [facility] ([facility]) MCV 92.7 fL 80-96 Mcv [facility] ([facility]) HCT 41.7 % 36.0-48.8 Hct [facility] ([facility]) MCH 31.6 pg 27.0-31.0 Above high normal Mch [facility] ([facility]) plt 254 K/mm3 172-450 Plt [facility] ([facility]) RDW 13.3 % 10.0-14.5 Rdw [facility] ([facility]) MCHC 34.1 g/dL 32.0-36.0 Mchc [facility] ([facility]) ID Date Data Source [id number] 07/16/2020 08:09:00 AM EST [facility] Name Value Range Interpretation Code Description Data Joselin rce(s) Supporting Document(s) VITAMIN D, 25-HYDROXY 41.8 ng/mL 30.0-100.0 [facility] Vitamin D deficiency has been defined by the [place] [employer] and an Endocrine Society practice guideline as alevel of serum 25-OH vitamin D less than 20 ng/mL (1,2).The Endocrine Society went on to further define vitamin Dinsufficiency as a level between 21 and 29 ng/mL (2).1. IOM ([place] [employer]). 2010. Dietary reference intakes for calcium and D. [place]: The National Academies Press.2. Rhoda Ramos, Colleen RAYMOND, et al. Evaluation, treatment, and prevention of vitamin D deficiency: an Endocrine Society clinical practice guideline. JCEM. 2010; 96(7):1911- 30.Performed at: RN - [facility] [address] [id number] Director: Rossi Bryant MD, Phone: [phone] ID Date Data Source [id number] 07/16/2020 08:06:00 AM EST [facility] Name Value Range Interpretation Code Description Data Joselin rce(s) Supporting Document(s) Vitamin D, 25-Hydroxy 41.8 ng/mL 30.0-100.0 [facility] Vitamin D deficiency has been defined by the [place] [employer] and an Endocrine Society practice guideline as alevel of serum 25-OH vitamin D less than 20 ng/mL (1,2).The Endocrine Society went on to further define vitamin Dinsufficiency as a level between 21 and 29 ng/mL (2).1. IOM ([place] [employer]). 2010. Dietary reference intakes for calcium and D. [place]: The National Academies Press.2. Rhoda Ramos, Colleen RAYMOND, et al. Evaluation, treatment, and prevention of vitamin D deficiency: an Endocrine Society clinical practice guideline. JCEM. 2010; 96(7):1911-30. ID Date Data Source [id number] 07/15/2020 01:07:00 PM EST [facility] Name Value Range Interpretation Code Description Data Joselin rce(s) Supporting Document(s) CHOLESTEROL 157 mg/dL 0-200 [facility] TRIGLYCERIDES 61 mg/dL 0-150 [facility] LDL CHOLESTEROL 46 mg/dL 0-100 [facility] HDL CHOLESTEROL 99 mg/dL 40-60 H [facility] CHOL/HDL RATIO 1.6 0.0-5.0 [facility] ID Date Data Source [id number] 07/15/2020 01:07:00 PM [facility] Name Value Range Interpretation Code Description Data Joselin rce(s) Supporting Document(s) GLUCOSE 83 mg/dL 74-106 [facility] BLOOD UREA NITROGEN 16 mg/dL 7-18 [facility] ital CREATININE 0.8 mg/dL 0.6-1.0 [facility] SODIUM 148 mmol/L 136-145 H [facility] POTASSIUM 4.8 mmol/L 3.5-5.1 [facility] CHLORIDE 112 mmol/L 98-107 H [facility] CO2 25 mmol/L 21-32 [facility] CALCIUM 9.2 mg/dL 8.5-10.1 [facility] ANION GAP 11.0 mmol/L 5-12 [facility] GLOMERULAR FILTRATION RATE 71 mL/min [facility] GFR IS CALCULATED IN mL/min/1.73m2 GOLD L FUNCTION: >90MILDLY DECREASED: 60-89MILDY TO MODERATELY DECREASED: 45-59 MODERATELY TO SEVERELY DECREASED: 30-44SEVERELY DECREASED: 15-29RENAL FAILURE: <15 AST 32 U/L 15-37 [facility] ALT 40 U/L 12-78 [facility] ALKALINE PHOSPHATASE 76 U/L 46-116 [facility] pital TOTAL BILIRUBIN 1.4 mg/dL 0.2-1.0 H [facility] TOTAL PROTEIN 7.0 g/dl 6.4-8.2 [facility] ALBUMIN 3.6 gm/dL 3.4-5.0 [facility] ID Date Data Source [id number] 07/15/2020 01:02:00 PM [facility] l Name Value Range Interpretation Code Description Data Joselin rce(s) Supporting Document(s) TSH 1.89 uIU/mL 0.36-3.74 [facility] ID Date Data Source [id number] 07/15/2020 12:42:00 PM [facility] l Name Value Range Interpretation Code Description Data Joselin rce(s) Supporting Document(s) ESTIMATED AVERAGE GLUCOSE 85.3 mg/dL [facility] ID Date Data Source [id number] 07/15/2020 12:42:00 PM [facility] l Name Value Range Interpretation Code Description Data Joselin rce(s) Supporting Document(s) HGBA1C 4.6 % 3.8-5.6 [facility] Diabetic > or = to 6.5%Prediabetes 5.7-6 .4%Normal <5.7 ID Date Data Source [id number] 07/15/2020 12:32:00 PM [facility] l Name Value Range Interpretation Code Description Data Joselin rce(s) Supporting Document(s) URINE MICROALBUMIN 59.5 mg/L 1.3-20.0 [facility] kamala URINE CREATININE 52.5 mg/dL [facility] al MICROALBUMIN/CREATININE RATIO 113 ug/mg [facility] ID Date Data Source [id number] 07/15/2020 12:23:00 PM [facility] l Name Value Range Interpretation Code Description Data Joselin rce(s) Supporting Document(s) WHITE BLOOD COUNT 6.0 K/mm3 4.0-10.0 [facility] al RED BLOOD COUNT 4.50 M/mm3 4.00-5.50 [facility] HEMOGLOBIN 14.2 gm/dL 12.0-16.0 [facility] HEMATOCRIT 41.7 % 36.0-48.8 [facility] MEAN CELL VOLUME 92.7 fl 80-96 [facility] MEAN CORPUSCULAR HEMOGLOBIN 31.6 pg 27.0-31.0 H [facility] MEAN CORPUSCULAR HGB CONC 34.1 g/dl 32.0-36.0 [facility] RED CELL DISTRIBUTION WIDTH 13.3 % 10.0-14.5 [facility] PLATELET COUNT 254 K/mm3 172-450 [facility] ID Date Data Source [id number] 05/08/2020 03:48:28 PM EDT [facility] Name Value Range Interpretation Code Description Data Joselin rce(s) Supporting Document(s) HGBA1C 4.5 % [facility] ID Date Data Source [id number] 04/25/2020 04:17:08 PM EDT [facility] Measurements & CalculationsHeight: 61 inches (5 [...] another healthcare [place] by: Leola Farah LPN, April [...] or 2004Family History:Diabetes (Mother, Brother, Sister)Myocardial infarction ([place]) (Father)Social/Personal History: Chief Complaintfollow-up visitHistory of Present Illness (HPI)Pt is a 70 y/o female, presents to review a home visit she had.Pt was visited by a provider from [facility] via her insurance. Pt states she was tested for creatinine and microalbumin, brought her results today and is concerned that the microalbumin are high. This test was done to patient's hx of diabetes. Pt will be traveling to [place] to see her specialists in the next week.Transitions of Care InboundProblem ReviewProblem List was reviewed and/or updated during this visit.Medication Reconciliation & ReviewMedication List was reviewed and/or updated during this visit, including review of any yawg-sbs-slgswgz medications, herbal therapies, and/or supplements.Allergy ReviewAllergy List [...] BMI 21.0-21.9 (ICD-V85.1) (ICD10- Z68.21)Assessed:Urostomy present (ICD-V44.6) (GAK70-B63.6) Assessment: Instructions: Suspect related to sample collection. [...] ORAL TABLETFOSAMAX 70 MG ORAL TABLETSEMSURA ESPERANZA 56877 BAGSVITAMIN D3 1.25 MG (08065 UT) ORAL CAPSULEROPINIROLE HCL 1 MG ORAL TABLETLEVOTHYROXINE SODIUM 75 MCG ORAL TABLETAllergies:No Known Allergies (updated 02/19/2020) Orders:Adult - Ofc Vst, EST, Level II [CPT-79041] Follow-Up Return to clinic: as needed, as scheduled Name Value Range Interpretation Code Description Data Joselin rce(s) Supporting Document(s) ID Date Data Source [id number] 02/21/2020 08:09:00 AM EDT [facility] Name Value Range Interpretation Code Description Data Joselin rce(s) Supporting Document(s) VITAMIN D, 25-HYDROXY 42.3 ng/mL 30.0-100.0 [facility] Vitamin D deficiency has been defined by the [place] and an Endocrine Society practice guideline as alevel of serum 25-OH vitamin D less than 20 ng/mL (1,2).The Endocrine Society went on to further define vitamin Dinsufficiency as a level between 21 and 29 ng/mL (2).1. IOM ([place] [employer]). 2010. Dietary reference intakes for calcium and D. [place]: The National Academies Press.2. Tianna PRITCHETT, Rhoda FONG, Colleen RAYMOND, et al. Evaluation, treatment, and prevention of vitamin D deficiency: an Endocrine Society clinical practice guideline. JCEM. 2010; 96(7):1911- 30.Performed at: RN - [facility] [place] [id number] Director: Rossi Bryant MD, Phone: [phone] ID Date Data Source [id number] 02/21/2020 08:06:00 AM EDT [facility] Name Value Range Interpretation Code Description Data Joselin rce(s) Supporting Document(s) Vitamin D, 25-Hydroxy 42.3 ng/mL 30.0-100.0 [facility] Vitamin D deficiency has been defined by the [place] and an Endocrine Society practice guideline as alevel of serum 25-OH vitamin D less than 20 ng/mL (1,2).The Endocrine Society went on to further define vitamin Dinsufficiency as a level between 21 and 29 ng/mL (2).1. IOM ([place]). 2010. Dietary reference intakes for calcium and D. [place]: The National Academies Press.2. Tianna PRITCHETT, Rhoda FONG, Colleen RAYMOND, et al. Evaluation, treatment, and prevention of vitamin D deficiency: an Endocrine Society clinical practice guideline. JCEM. 2010; 96(7):1911-30. ID Date Data Source [id number] 02/20/2020 10:10:00 AM EDT [facility] l Name Value Range Interpretation Code Description Data Joselin rce(s) Supporting Document(s) FREE T4 0.85 ng/dL 0.76-1.46 [facility] ID Date Data Source [id number] 02/20/2020 10:10:00 AM EDT [facility] Name Value Range Interpretation Code Description Data Joselin rce(s) Supporting Document(s) TSH 3.71 uIU/mL 0.36-3.74 [facility] ID Date Data Source [id number] 02/20/2020 09:53:00 AM EDT [facility] l Name Value Range Interpretation Code Description Data Joselin rce(s) Supporting Document(s) GLUCOSE 85 mg/dL 74-106 [facility] BLOOD UREA NITROGEN 17 mg/dL 7-18 [facility] ital CREATININE 0.8 mg/dL 0.6-1.0 [facility] SODIUM 142 mmol/L 136-145 [facility] POTASSIUM 4.7 mmol/L 3.5-5.1 [facility] CHLORIDE 109 mmol/L 98-107 H [facility] CO2 25 mmol/L 21-32 [facility] CALCIUM 8.8 mg/dL 8.5-10.1 [facility] ANION GAP 8.0 mmol/L 5-12 [facility] GLOMERULAR FILTRATION RATE 71 mL/min [facility] GFR IS CALCULATED IN mL/min/1.73m2 GOLD L FUNCTION: >90MILDLY DECREASED: 60-89MILDY TO MODERATELY DECREASED: 45-59 MODERATELY TO SEVERELY DECREASED: 30-44SEVERELY DECREASED: 15-29RENAL FAILURE: <15 AST 20 U/L 15-37 [facility] ALT 39 U/L 12-78 [facility] ALKALINE PHOSPHATASE 82 U/L 46-116 [facility] pital TOTAL BILIRUBIN 1.0 mg/dL 0.2-1.0 [facility] TOTAL PROTEIN 6.6 g/dl 6.4-8.2 [facility] ALBUMIN 3.4 gm/dL 3.4-5.0 [facility] ID Date Data Source [id number] 02/20/2020 09:53:00 AM EDT [facility] l Name Value Range Interpretation Code Description Data Joselin rce(s) Supporting Document(s) CHOLESTEROL 140 mg/dL 0-200 [facility] TRIGLYCERIDES 69 mg/dL 0-150 [facility] LDL CHOLESTEROL 48 mg/dL 0-100 [facility] HDL CHOLESTEROL 78 mg/dL 40-60 H [facility] CHOL/HDL RATIO 1.8 0.0-5.0 [facility] ID Date Data Source [id number] 02/20/2020 09:40:00 AM EDT [facility] Name Value Range Interpretation Code Description Data [facility] rce(s) Supporting Document(s) ESTIMATED AVERAGE GLUCOSE 82.5 mg/dL [facility] ID Date Data Source [id number] 02/20/2020 09:40:00 AM EDT [facility] l Name Value Range Interpretation Code Description Data [facility] rce(s) Supporting Document(s) HGBA1C 4.5 % 3.8-5.6 [facility] Diabetic > or = to 6.5%Prediabetes 5.7-6 .4%Normal <5.7 ID Date Data Source [id number] 02/20/2020 09:18:00 AM EDT [facility] l Name Value Range Interpretation Code Description Data [facility] rce(s) Supporting Document(s) WHITE BLOOD COUNT 5.6 K/mm3 4.0-10.0 [facility] al RED BLOOD COUNT 4.42 M/mm3 4.00-5.50 [facility] HEMOGLOBIN 14.2 gm/dL 12.0-16.0 [facility] HEMATOCRIT 41.9 % 36.0-48.8 [facility] MEAN CELL VOLUME 94.8 fl 80-96 [facility] MEAN CORPUSCULAR HEMOGLOBIN 32.1 pg 27.0-31.0 H [facility] MEAN CORPUSCULAR HGB CONC 33.9 g/dl 32.0-36.0 [facility] RED CELL DISTRIBUTION WIDTH 13.0 % 10.0-14.5 [facility] PLATELET COUNT 216 K/mm3 172-450 [facility] MEAN PLATELET VOLUME 10.2 fl 9.0-13.0 [facility] pital GRAN % 68.0 % 50-80.0 [facility] IG% 0.0 % 0.0-0.2 [facility] LYMPH % 23.9 % 25.0-50.0 L [facility] MONO % 5.7 % 2.0-10.0 [facility] EOS % 2.0 % 0-5.0 [facility] BASO % 0.4 % 0.0-2.0 [facility] GRAN # 3.8 K/mm3 2.0-8.00 [facility] IG# 0.0 K/mm3 0.0-0.2 [facility] LYMPH # 1.3 K/mm3 1.0-5.0 [facility] MONO # 0.3 K/mm3 0.10-1.20 [facility] EOS # 0.1 K/mm3 0.0-0.5 [facility] BASO # 0.0 K/mm3 0.0-0.2 [facility] ID Date Data Source [id number] 02/19/2020 01:36:10 PM EDT [facility] Measurements & CalculationsHeight: 61 inches 154.94 [...] another healthcare [place] [...] or 2004Family History:Diabetes (Mother, Brother, Sister)Myocardial infarction ([place]) (Father)Social/Personal History: Nurses Note stopped taking roprinolole thought it was upsetting stomachdecided that wasn't it -will start taking it againrealized it was from taking medications and just going to bedChi Complaintfollow up visitHistory of Present Illness (HPI)Pt is a 70 y/o female, presents for routine follow-up. Rescheduled her October 2019 colon surgeon and urologist in [place], now scheduled for April 2020. States she [...] during this visit, including review of any vqos-ykc-ysonouq medications, herbal therapies, and/or supplements.Allergy ReviewAllergy List [...] & Plan Problems:Added: Bariatric surgery status (ICD-V45.86) (TKK14-L62.84): since 2003 or 2004Type 2 diabetes mellitus without complications (KSI49-J66.9): diet controlled since 2003 Assessment: Instructions: Update [...] here or with a specialist office.Hypothyroidism, unspecified (NED30-Q17.9) Assessment: Instructions: Update labs as ordered.History of malignant neoplasm of colon (ICD-V10.05) (MRC20-L38.038) Assessment: Instructions: Continue with your specialists as scheduled.Assessed:Vitamin D deficiency, unspecified (KIL29-M42.9) Assessment: Instructions: Update labs as ordered.Urostomy present (ICD-V44.6) (ICD10- Z93.6) Assessment: Instructions: As above. Call with any concerns.Other specified disorders of bone density and structure, multiple sites (PZA72-H41.89) Assessment: Instructions: Will need DEXA report.Removed:Nausea with vomiting, unspecified (ICD-787.01) (LPV41-A15.2)Patient Instructions/Care Plan: Type 2 diabetes mellitus without [...] ORAL TABLETFOSAMAX 70 MG ORAL TABLETSEMSURA ESPERANZA 62139 BAGSVITAMIN D3 1.25 MG (69021 UT) ORAL CAPSULEROPINIROLE HCL 1 MG ORAL TABLETLEVOTHYROXINE SODIUM 75 MCG ORAL TABLETMedication Changes:Added: FOSAMAX 70 MG ORAL TABLET-Once weeklyIMODIUM A-D 2 MG ORAL TABLET-as neededONDANSETRON HCL 4 MG ORAL TABLET-take 1 tablet po daily at bedtimemAllergies:No Known Allergies (updated 02/19/2020) Orders:COMP METABOLIC PANEL [CPT-39134] CBC W/DIFF [CPT-41229] HgBA1c [CPT-63037] LIPID PANEL [CPT-17576] TSH [CPT-51267] T-4 free [CPT-92197] Vitamin D 250H Unspecified [CPT-74905] COMP METABOLIC PANEL [CPT-51489] CBC W/DIFF [CPT-74397] HgBA1c [CPT-33861] Vitamin D 250H Unspecified [CPT-66606] Adult - Ofc Vst, EST, Level III [CPT-38978] Follow-Up Return to clinic: in 90 days for follow upClinical Visit Summary Declined Name Value Range Interpretation Code Description Data Joselin rce(s) Supporting Document(s) ID Date Data Source [id number] 11/12/2019 10:56:00 AM EDT [facility] [...] Name Value Range Interpretation Code Description Data [facility](s) Supporting Document(s) ID Date Data Source [id number] 11/07/2019 01:24:00 PM EDT [facility] FAX Name Value Range Interpretation Code Description Data [facility](s) Supporting Document(s) GLUCOSE 82 mg/dL 74-106 [facility] BLOOD UREA NITROGEN 16 mg/dL 7-18 [facility] ital CREATININE 0.7 mg/dL 0.6-1.0 [facility] SODIUM 145 mmol/L 136-145 [facility] POTASSIUM 4.5 mmol/L 3.5-5.1 [facility] CHLORIDE 110 mmol/L 98-107 H [facility] CO2 24 mmol/L 21-32 [facility] CALCIUM 8.7 mg/dL 8.5-10.1 [facility] ANION GAP 11.0 mmol/L 5-12 [facility] GLOMERULAR FILTRATION RATE 83 mL/min [facility] GFR IS CALCULATED IN mL/min/1.73m2 GOLD L FUNCTION: >90MILDLY DECREASED: 60-89MILDY TO MODERATELY DECREASED: 45-59 MODERATELY TO SEVERELY DECREASED: 30-44SEVERELY DECREASED: 15-29RENAL FAILURE: <15 AST 25 U/L 15-37 [facility] ALT 35 U/L 12-78 [facility] ALKALINE PHOSPHATASE 66 U/L 46-116 [facility] pital TOTAL BILIRUBIN 1.2 mg/dL 0.2-1.0 H [facility] TOTAL PROTEIN 7.3 g/dl 6.4-8.2 [facility] ALBUMIN 3.6 gm/dL 3.4-5.0 [facility] ID Date Data Source [id number] 10/10/2019 10:30:00 AM EST [facility] DATE OF EXAMINATION: 10/09/2019 13:23 [...] analyzed through the latest version of the All4Staffe ddiagnosis system. The patient states that her [...] rce(s) Supporting Document(s) ID Date Data Source [id number] 10/09/2019 02:12:00 PM EST [facility] DATE OF EXAMINATION: 10/09/2019 13:23 EST IMPRESSION: For a detailed report please refer to the software generated DataRPM DEXAreport. Electronically signed in PS360 by: Ambrocio Laureano M.D. 10/09/2019 14:06 EST Name Value Range Interpretation Code Description Data Joselin rce(s) Supporting Document(s) ID Date Data Source [id number] 09/06/2019 03:21:33 PM EST [facility] Measurements & CalculationsHeight: 61 inches (5 [...] or Preferred Language: EnglishFamily and Home Address: [facility] [address] [place] [address] What is your housing situation today? I [...] Denies Insecurity: food, utilities, clothing, child welfare caseworker, phone, legal services, otherIn the past year, [...] 2 nights in a row in a usp, correction, skilled nursing center or juvenile correctional facility? No Has [...] you a refugee? No (Country of origin: [facility]) Do you feel physically and emotionally [...] hysterectomybladder removalCholecystectomyFamily History:Diabetes (Mother, Brother, Sister)Myocardial infarction ([place]) (Father)Social/Personal History: Smoking Status: never smokerChief Complaintannual examHistory of Present Illness (HPI)69 yo female here to establish care, prior patient of this provider at [facility]. Pt unfortunately has no prior records received yet and did not bring her medication list or bottle in today.Pt has multiple complex medical c onditions. Pt has urostomy in place, follows with urology in [place] annually now. Pt has concerns about nausea and vomiting over the last week or so. Denies sick exposure. Pt reports she ran out of an old medication for her "stomach" that was written by [place] provider.HPI performed by: Ariel LLAMAS, September 06, 2019 3:48 PMTransitions of Care InboundAllergy Review Patient has no known allergies.Adult Preventive CareProvider Calculated and Reviewed all Clinical Protocols for patient today. Labs/Meds/Other Counseling- Nutrition and Physical Activity:BMI Interpretation: Healthy Weight (09/06/2019) Counseling: Done (09/06/2019) Physical Activity: Done (09/06/2019)Cancer Screening Mammogram Reviewed: Today's Comments: 10/09/2019 [facility] General: Denies loss of appetite, chills, dizziness, [...] & Plan Problems:Added: Vitamin D deficiency, unspecified (GGS52-K84.9) Assessment: Instructions: Remains low on Drisdol. Will send for Vitamin D3 once weekly and will repeat labs in 12 weeks.Encounter for general adult medical examination without abnormal findings (DBD72-Q37.00) Assessment: Instructions: Please complete a release of information form to obtain medical records from your prior providers(s).Actinic keratosis (ICD-702.0) (EKF05-D39.0) Assessment: Instructions: Referred to Delano Gutierrez for evaluation and possible excision.Actinic keratosis (ICD-702.0) (DQZ58-I35.0) Assessment: Instructions: Referred to [facility]ano Gutierrez for evaluation and possible excision.Nausea with vomiting, unspecified (ICD-787.01) (ZHC04-D23.2) Assessment: Instructions: Call your [place] specialist to discuss. Unable to write for prior medication as [place] pharmacy has never filled.Vitamin D deficiency, unspecified (UXU24-P14.9) Assessment: Recent lab shows no improvement with Drisdol. Rather than continuing that further as was prescribed by [facility] provider, recommend switching to alternate composition Vitamin [...] possible excision.Nausea with vomiting- unspecified: Call your [place] specialist to discuss. Unable to write for prior medication as [place] pharmacy has never filled. Plan developed in collaboration with patient and/or familyMedication Changes:Added: LEVOTHYROXINE SODIUM 75 MCG ORAL TABLET-1 tab po daily in am on empty stomachROPINIROLE HCL 1 MG ORAL TABLET-2 tabs po 1 to 3 hours before bedtimeNew Prescription:VITAMIN D3 1.25 MG (33165 UT) ORAL CAPSULE-Take 1 capsule by mouth once weekly Qty: 12[Capsule] Refills: 0 Method: ElectronicOrders:Vitamin D 250H Unspecified [CPT-37554] Surgical Consult [CPT-32037] Preventive, New, (65+) [CPT-75825] Follow-Up Return to clinic: in 6 months for follow upMedications:VITAMIN D3 1.25 MG (65647 UT) ORAL CAPSULE (CHOLECALCIFEROL) Take 1 capsule by mouth once weekly #12[Capsule] x 0 Route:ORAL Entered and Authorized by: Ariel LLAMAS [facility]: [id number] [employer] [id number] [place] [address] Fax: Note to Pharmacy: Route: ORAL; Indications: VITAMIN D DEFICIENCY, UNSPECIFIED RxID: [id number] signed by Ariel LLMAAS on 09/12/2019 at 11:27 AM Name Value Range Interpretation Code Description Data Joselin rce(s) Supporting Document(s) ID Date Data Source [id number] 08/28/2019 04:05:00 PM [facility] Name Value Range Interpretation Code Description Data Joselin rce(s) Supporting Document(s) VITAMIN D, 25-HYDROXY 23.5 ng/mL 30.0-100.0 [facility] Vitamin D deficiency has been defined by the [place] of[place] and an Endocrine Society practice guideline as alevel of serum 25-OH vitamin D less than 20 ng/mL (1,2).The Endocrine Society went on to further define vitamin Dinsufficiency as a level between 21 and 29 ng/mL (2).1. IOM ([place] of [employer]). 2010. Dietary reference intakes for calcium and D. [place]: The National Academies Press.2. Rhoda Ramos, Colleen RAYMOND, et al. Evaluation, treatment, and prevention of vitamin D deficiency: an Endocrine Society clinical practice guideline. JCEM. 2010; 96(7):191- .Performed at: RN - [facility] [address] [id number] Director: Rossi Bryant MD, Phone: [phone] ID Date Data Source [id number] 08/28/2019 04:05:00 PM EST [facility] Name Value Range Interpretation Code Description Data Joselin rce(s) Supporting Document(s) Vitamin D, 25-Hydroxy 23.5 ng/mL 30.0-100.0 Below low normal [facility] Vitamin D deficiency has been defined by the [place] [employer] and an Endocrine Society practice guideline as alevel of serum 25-OH vitamin D less than 20 ng/mL (1,2).The Endocrine Society went on to further define vitamin Dinsufficiency as a level between 21 and 29 ng/mL (2).1. IOM ([place] [employer]). 2010. Dietary reference intakes for [...] Body height 61 [in_i] 61 [in_i] USHA ([facility]) Body weight 1865.6 [oz_av] 1865.6 [oz_av] ATHEN A ([facility]) Systolic blood pressure 136 mm[Hg] 136 mm[Hg] A THENA ([facility]) Body height 61 [in_i] 61 [in_i] USHA ([facility]) Diastolic blood pressure 75 mm[Hg] 75 mm[Hg] USHA ([facility]) Body weight 1876 [oz_av] 1876 [oz_av] USHA ([facility]) Systolic blood pressure 136 mm[Hg] 136 mm[Hg] Kelly TOMPKINS ([facility]) Body height 61 [in_i] 61 [in_i] USHA ([facility]) Diastolic blood pressure 81 mm[Hg] 81 mm[Hg] USHA ([facility])
[2020-09-11 21:01] LABS: FERRITIN 288 NG/ML (8-252); IRON (FE) 16 UG/DL (50-170); PERCENT SATURATION 8.4 % (13.2-45.0); TOTAL IRON BINDING CAPACITY 190 UG/DL (250-450)
[2020-09-11 21:05] LABS: FOLATE > 24.0 NG/ML (>5.4); VITAMIN B12 LEVEL > 2000 PG/ML (247-911)
--- NOTE | 2020-09-11 21:29 | HPEPDOC ---
[facility] Medical History & Physical Date of Admission Sep 11, 2020 Date of Service: Sep 11, 2020 Primary Care Physician: A Other Provider Gwyn Boyle Attending Physician: JOSE KATZ MD History and Physical TIME OF SERVICE: 835pm CHIEF COMPLAINT: sent by PCP HISTORY OF PRESENT ILLNESS: This 70 yr old F has been feeling weak saw her PCP a few days ago for evaluation of lower back pain and had blood work done; today her PCP called her and sent her to the ER bc of abnormal blood work and possible infection. She denies having fevers associated with chills, n/v, falling recently or any other acute c/o beyond the back pain. REVIEW OF SYSTEMS: 12-point review of systems negative except as listed in HPI PAST MEDICAL/ SURGICAL HISTORY: HTN Hypothyroidism Gastric bypass Colon cancer s/p resection, colostomy with subsequent reversal Cystectomy with placement of urostomy Tubal ligation Hysterectomy SOCIAL HISTORY: n/a FAMILY HISTORY: n/a ALLERGIES: Please see below. HOME MEDICATIONS: Please see below. PHYSICAL EXAMINATION: Vital Signs Date Time Temp Pulse Resp B/P (MAP) Pulse Ox O2 Delivery O2 Flow Rate FiO2 09/11/20 12:13 98.2 75 16 120/67 (84) 99 Room Air GENERAL APPEARANCE: well nourished/ well developed/ NAD CARDIOVASCULAR: RRR/NMRG LUNGS: CTAB on RA ABDOMEN: flat/ soft & NT/ urostomy draining clear yellow urine with sediment in urostomy bag MUSCULOSKELETAL: NCAT /CARLA x 4 INTEGUMENT: generalized palor NEUROLOGICAL: speech not dysarthric PSYCHIATRIC: A&O x 3 LABORATORY DATA: 09/11/20 12:47 09/11/20 20:08 09/12/20 01:28 Laboratory Tests 2 09/11/20 12:47: Immature Granulocyte % (Auto) 2.3, Neutrophils (%) (Auto) 91.8H, Lymphocytes (%) (Auto) 2.6L, Monocytes (%) (Auto) 3.0, Eosinophils (%) (Auto) 0.1, Basophils (%) (Auto) 0.2, Neutrophils # (Auto) 20.4H, Lymphocytes # (Auto) 0.6L, Monocytes # (Auto) 0.7, Eosinophils # (Auto) 0.0, Basophils # (Auto) 0.0, Nucleated Red Blood Cells % (auto) 0.0, Anion Gap 11, Glomerular Filtration Rate 37.6L, Calcium Level 8.7L, Total Bilirubin 0.6, Direct Bilirubin 0.3H, Aspartate Amino Transf (AST/SGOT) 46H, Alanine Aminotransferase (ALT/SGPT) 111H, Alkaline Phosphatase 123H, Total Protein 5.5L, Albumin 1.9L, Albumin/Globulin Ratio 0.5L, Lipase 147 09/11/20 15:41: Coronavirus (COVID-19)(PCR) NEGATIVE, Influenza Type A (RT-PCR) NEGATIVE, Influenza Type B (RT-PCR) NEGATIVE, Respiratory Syncytial Virus (PCR) NEGATIVE 09/11/20 20:08: Iron Level 16L, Total Iron Binding Capacity 190L, Transferrin % Saturation 8.4L, Ferritin 288H, Vitamin B12 Level > 2000H, Folate > 24.0 IMAGING: Chest xray IMPRESSION: No active disease. CT abd/pelvis IMPRESSION: 1. Striated nephrograms with bilateral renal enlargement can be due to acute pyelonephritis, acute obstruction, tubular obstruction or a hypotensive event among other etiologies. 2. There is mild diffuse colonic wall thickening which could be due to colitis however there is no pericolonic inflammation. MICROBIOLOGY: pending. ASSESSMENT: is a 70 yr old w a hx of HTN, Hypothyroidism, Gastric bypass, Colon, & Cystectomy with placement of urostomy who will be admitted for management of leukocytosis possibly 2/2 pyelonephritis, acute anemia, MIRTHA vs CKD and transaminitis. 1. Leukocytosis possibly 2/[address] shows findings that suggest she may have pyelonephritis. This may also partially explain the back pain Plan: f/u UA w UCx, f/u blood cx 2. Acute anemia She has a hx of colon cancer and thickening on CT Plan: trend Hg/ f/u CEA, iron studies and stool occult 3. MIRTHA vs CKD Plan: f/u ulytes for FENa / IVF 4. Transamintis Hep panel done in 2008 was neg Plan: f/u repeat Hep panel / trend LFTs 5. HTN? Plan: f/u with PCP 6. Hypothyroidism Plan: Levothyroxine DVT px w SCDs Dispo: home after at least 2 midnights stay Home Medications Scheduled Cholecalciferol (Vitamin D3) (Vitamin D3) 1,250 Mcg Capsule, 1,250 MG PO QWEEK TAKES ON TUESDAY Levothyroxine Sodium (Levothyroxine Sodium) 75 Mcg Tablet, 75 MCG PO DAILY Scheduled PRN Ondansetron HCl (Ondansetron HCl) 4 Mg Tablet, 8 MG PO BIDP PRN for NAUSEA Allergies Coded Allergies: amoxicillin (Verified Allergy, Intermediate, Itching, 09/11/20) clavulanic acid (Verified Allergy, Intermediate, Itching, 09/11/20) A-FIB/CHADSVASC A-FIB History Current/History of A-Fib/PAF?: No Current PO Anticoag Therapy: No JOSE KATZ MD Sep 11, 2020 21:29
[2020-09-11 22:17] VITALS: BP 117/60
[2020-09-12] VITALS (7 sets, daily range): BP systolic 102–141; BP diastolic 58–85
[2020-09-12 00:32] LABS: CREATININE,RANDOM URINE 24.4 MG/DL
[2020-09-12] MEDS: LEVOTHYROXINE 75MCG TABLET (0.075MG) PO SCH (05:38)
[2020-09-12 06:56] LABS: HEMATOCRIT 30.2 % (36.0-47.0); HEMOGLOBIN 10.2 g/dl (12.0-15.5); MEAN CORPUSCULAR HEMOGLOBIN 31.4 pg (27.0-33.0); MEAN CORPUSCULAR HGB CONC 33.8 g/dl (32.0-36.5); MEAN CORPUSCULAR VOLUME 92.9 fl (80.0-96.0); PLATELET COUNT, AUTOMATED 350 10^3/uL (150-450); RED BLOOD COUNT 3.25 10^6/uL (4.00-5.40); WHITE BLOOD COUNT 22.8 10^3/uL (4.0-10.0)
[2020-09-12 07:07] LABS: INR 1.04; PROTHROMBIN TIME 13.8 SECONDS (12.5-14.3)
[2020-09-12 07:17] LABS: ALBUMIN 1.8 GM/DL (3.2-5.2); BILIRUBIN,TOTAL 0.5 MG/DL (0.2-1.0); CALCIUM LEVEL 8.2 MG/DL (8.8-10.2); CREATININE FOR GFR 1.34 MG/DL (0.55-1.30); GLOMERULAR FILTRATION RATE 41.5 (>39); POTASSIUM SERUM 3.5 MEQ/L (3.5-5.1); TOTAL PROTEIN 5.3 GM/DL (6.4-8.2)
[2020-09-12 10:45] LABS: HEPATITIS A ANTIBODY IGM NEGATIVE (NEGATIVE); HEPATITIS B CORE ANTIBODY IGM NEGATIVE (NEGATIVE); HEPATITIS B SURFACE ANTIGEN NEGATIVE (NEGATIVE); HEPATITIS C VIRUS ABY INDEX < 0.0 INDEX (<0.8)
[2020-09-12 12:59] LABS: APPEARANCE, URINE HAZY (CLEAR); BACTERIA, URINE AUTO NEGATIVE (NEGATIVE); BILIRUBIN, URINE AUTO NEGATIVE (NEGATIVE); BLOOD, URINE BLOOD NEGATIVE (NEGATIVE); COLOR, URINE YELLOW (YELLOW); GLUCOSE, URINE (UA) AUTO NEGATIVE (NEGATIVE); KETONE, URINE AUTO NEGATIVE (NEGATIVE); LEUKOCYTE ESTERASE, URINE AUTO 3+ (NEGATIVE); NITRITE, URINE AUTO NEGATIVE (NEGATIVE); PROTEIN, URINE AUTO 1+ mg/dL (NEGATIVE); RBC, URINE AUTO 2 /HPF (0-3); SPECIFIC GRAVITY URINE AUTO 1.027 (1.002-1.035); SQUAMOUS EPITHELIAL CELL UR AU 0 /HPF (0-6); UROBILINOGEN, URINE AUTO 0.2 mg/dL (0.0-2.0); WBC, URINE AUTO 12 /HPF (0-3)
[2020-09-12] MEDS ORDERED: cefTRIAXone SOD 2 GM in D5W MINI-BAG PLUS 50 ML IV SCH (15:00)
--- NOTE | 2020-09-12 15:54 | IPNPDOC ---
Subjective Date Seen The patient was seen on 09/12/20. Subjective Chief Complaint/HPI Does not have any specific complaints. Reports that she just has been feeling very tired and weak from the 08/29/20. Does not have any abdominal pain or nausea or vomiting or diarrhea, Does have some back pain, No cough or phlegm , No fever or chills. Objective Physical Examination General Exam: Positive: Alert, Cooperative, No Acute Distress, Other (frailunderweight) Eye Exam: Positive: PERRLA, Conjunctiva & lids normal, EOMI; Negative: Sclera icteric ENT Exam: Positive: Atraumatic, Mucous membr. moist/pink, Pharynx Normal, Other ENT (bitemporal wasting) Neck Exam: Positive: Supple; Negative: JVD, thyromegaly Chest Exam: Positive: Clear to auscultation, Normal air movement Heart Exam: Positive: Rate Normal, Regular Rhythm, Normal S1, Normal S2; Negative: Murmurs, Rubs Abdomen Exam: Positive: Normal bowel sounds, Soft; Negative: Tenderness, Hepatospenomegaly Extremity Exam: Negative: Clubbing, Cyanosis, Edema Skin Exam: Positive: Nl turgor and temperature; Negative: Rash, Breakdown Assessment /Plan Assessment Ms. Garcia is a 70 yr old w a hx of HTN, Hypothyroidism, Gastric bypass 2003, Colon, & Cystectomy with placement of urostomy 2017 was admitted for the e valuation of leukocytosis possibly 2/2 pyelonephritis, acute anemia, MIRTHA vs CKD and transaminitis. Leukocytosis possibly 2/[address] shows findings that suggest she may have pyelonephritis. This may also partially explain the back pain blood cultures negative till date. urine culture pending. start on zosyn. will also get peripheral smear. Anemia She has a hx of colon cancer resected in 2017 no chemo after that. and thickening on CT stool occult positive, CEA normal She also has h/o gastric bypass in [address] Willis he will review the CT but she will need a EGD and Colonoscopy most likely this will done as outpatient as patient is stable at this point. Likely CKD stage 3. Has h/o total cystectomy with ileal conduit and urostomy. Due to involvement of the bladder by colon cancer. Possible underlying cirrhosis CT abd possible varices at he lower end of esophagus, mild transaminitis. This is probably from her h/o morbid obesity. Hep panel negative. She had liver Bx in 2006 Hypothyroidism Levothyroxine DVT px w SCDs Plan/VTE VTE Prophylaxis Ordered?: Yes VS, I&O, 24H, Fishbone Vital Signs/I&O Vital Signs Date Time Temp Pulse Resp B/P (MAP) Pulse Ox O2 Delivery O2 Flow Rate FiO2 09/12/20 14:00 99.7 83 20 118/64 (82) 99 Room Air I&O- Last 24 Hours up to 6 AM 09/12/20 06:00 Intake Total 1000 ml Output Total 0 ml Balance 1000 ml Laboratory Data 24H LABS Laboratory Tests 2 09/11/20 15:41: Coronavirus (COVID-19)(PCR) NEGATIVE, Influenza Type A (RT-PCR) NEGATIVE, Influenza Type B (RT-PCR) NEGATIVE, Respiratory Syncytial Virus (PCR) NEGATIVE 09/11/20 19:28: Urine Random Creatinine 24.4, Urine Random Sodium 33, Urine Random Urea Nitrogen 351 09/11/20 20:08: Iron Level 16L, Total Iron Binding Capacity 190L, Transferrin % Saturation 8.4L, Ferritin 288H, Vitamin B12 Level > 2000H, Folate > 24.0 09/11/20 23:42: Urine Color YELLOW, Urine Appearance HAZY, Urine pH 9.0, Urine Specific [place] 1.027, Urine Protein 1+H, Urine Glucose (Auto)(UA) NEGATIVE, Urine Ketones (Auto) NEGATIVE, Urine Blood NEGATIVE, Urine Nitrite NEGATIVE, Urine Bilirubin NEGATIVE, Urine Urobilinogen 0.2, Urine Leukocyte Esterase (Auto) 3+H, Urine WBC (Auto) 12H, Urine RBC (Auto) 2, Urine Hyaline Casts (Auto) 0, Urine Bacteria (Auto) NEGATIVE, Urine Squamous Epithelial Cells 0, Urine Sperm (Auto) 09/12/20 06:43: Prothrombin Time 13.8, Prothromb Time International Ratio 1.04, Anion Gap 13, Glomerular Filtration Rate 41.5, Calcium Level 8.2L, Total Bilirubin 0.5, Aspartate Amino Transf (AST/SGOT) 34, Alanine Aminotransferase (ALT/SGPT) 89H, Alkaline Phosphatase 118H, Total Protein 5.3L, Albumin 1.8L, Albumin/Globulin Ratio 0.5L 09/12/20 06:44: Nucleated Red Blood Cells % (auto) 0.0, Differential Slide Review Report, Peripheral Blood Smear Path Consult PERIPHERAL SMEAR, Carcinoembryonic Antigen 0.9, Hepatitis A IgM Antibody NEGATIVE, Hepatitis B Surface Antigen NEGATIVE, Hepatitis B Core IgM Antibody NEGATIVE, Hepatitis C Antibody Index < 0.0 CBC/BMP Laboratory Tests 09/11/20 20:08 09/12/20 01:28 09/12/20 06:43 09/12/20 06:44 Microbiology Microbiology 09/11/20 Stool Occult Blood (ENRIQUE) - Final, Complete 09/11/20 Urine Culture, Received Pending 09/11/20 Blood Culture - Preliminary, Resulted No growth after 24 hours . All specim... 09/11/20 Blood Culture - Preliminary, Resulted No growth after 24 hours . All specim... JORDY PINEDA MD Sep 12, 2020 15:54
[2020-09-12] MEDS ORDERED: PIPERACILLIN/TAZOBACTAM SOD 3.375 GM in D5W MINI-BAG PLUS 50 ML IV SCH (17:00)
[2020-09-12] MEDS: PIPERACILLIN/TAZOBACTAM SOD 3.375 GM in D5W MINI-BAG PLUS 50 ML IV SCH (17:25)
[2020-09-13] MEDS: PIPERACILLIN/TAZOBACTAM SOD 3.375 GM in D5W MINI-BAG PLUS 50 ML IV SCH ×3 (01:40→17:59)
[2020-09-13] MEDS ORDERED: ONDANSETRON 4MG/2ML VIAL IV ONE (02:00)
[2020-09-13] MEDS: LEVOTHYROXINE 75MCG TABLET (0.075MG) PO SCH (05:30)
[2020-09-13 06:12] VITALS: BP 115/64
[2020-09-13 08:22] LABS: BASO % 0.2 % (0.0-1.0); EOS % 0.1 % (0.0-3.0); HEMATOCRIT 29.1 % (36.0-47.0); HEMOGLOBIN 9.6 g/dl (12.0-15.5); LYMPH # 0.8 10^3/uL (1.5-5.0); LYMPH % 3.8 % (24.0-44.0); MEAN CORPUSCULAR HEMOGLOBIN 30.9 pg (27.0-33.0); MEAN CORPUSCULAR VOLUME 93.6 fl (80.0-96.0); MONO # 0.8 10^3/uL (0.0-0.8); NEUTROPHILS # 18.1 10^3/uL (1.5-8.5); NEUTROPHILS % 90.6 % (36.0-66.0); PLATELET COUNT, AUTOMATED 347 10^3/uL (150-450); RED BLOOD COUNT 3.11 10^6/uL (4.00-5.40); WHITE BLOOD COUNT 19.9 10^3/uL (4.0-10.0)
[2020-09-13 08:47] LABS: ALBUMIN 1.7 GM/DL (3.2-5.2); BILIRUBIN,TOTAL 0.6 MG/DL (0.2-1.0); CALCIUM LEVEL 8.3 MG/DL (8.8-10.2); CREATININE FOR GFR 1.37 MG/DL (0.55-1.30); GLOMERULAR FILTRATION RATE 40.5 (>39); POTASSIUM SERUM 3.8 MEQ/L (3.5-5.1); TOTAL PROTEIN 5.3 GM/DL (6.4-8.2)
[2020-09-13 09:29] LABS: INR 1.28; PROTHROMBIN TIME 16.3 SECONDS (12.5-14.3)
--- NOTE | 2020-09-13 11:06 | IPNPDOC ---
Subjective Date Seen The patient was seen on 09/13/20. Subjective Chief Complaint/HPI No overnight events, remains afebrile. Still feels about the same, Very tired and washed out. Has chronic diarrhea due to colon resection not any worse than usual. No abdominal pain, no nausea or vomiting. She did have h/o C diff several times in the past in [id number]. Objective Physical Examination General Exam: Positive: Alert, Cooperative, No Acute Distress, Other (frailunderweight) Eye Exam: Positive: PERRLA, Conjunctiva & lids normal, EOMI; Negative: Sclera icteric ENT Exam: Positive: Atraumatic, Mucous membr. moist/pink, Pharynx Normal, Other ENT (bitemporal wasting) Neck Exam: Positive: Supple; Negative: JVD, thyromegaly Chest Exam: Positive: Clear to auscultation, Normal air movement Heart Exam: Positive: Rate Normal, Regular Rhythm, Normal S1, Normal S2; Negative: Murmurs, Rubs Abdomen Exam: Positive: Normal bowel sounds, Soft; Negative: Tenderness, Hepatospenomegaly Extremity Exam: Negative: Clubbing, Cyanosis, Edema Skin Exam: Positive: Nl turgor and temperature; Negative: Rash, Breakdown Assessment /Plan Assessment Ms. Garcia is a 70 yr old w a hx of HTN, Hypothyroidism, Gastric bypass 2003, Colon, & Cystectomy with placement of urostomy 2017 was admitted for the evaluation of leukocytosis possibly 2/2 pyelonephritis, acute anemia, MIRTHA vs CKD and transaminitis. Leukocytosis possibly 2/[address] shows findings that suggest she may have pyelonephritis. This may also partially explain the back pain blood cultures negative till date. urine culture pending. though this will probably be contaminated as she has urostomy bag. on zosyn. will also get peripheral smear. will check for C diff. Anemia She has a hx of colon cancer resected in 2017 no chemo after that. and thickening on CT stool occult positive, CEA normal She also has h/o gastric bypass in [address] Willis he will review the CT but she will need a EGD and Colonoscopy most likely this will done as outpatient as patient is stable at this point. Likely CKD stage 3. Has h/o total cystectomy with ileal conduit and urostomy. Due to involvement of the bladder by colon cancer. Possible underlying cirrhosis CT abd possible varices at he lower end of esophagus, mild transaminitis. This is probably from her h/o morbid obesity. Hep panel negative. She had liver Bx in 2006 Hypothyroidism Levothyroxine DVT px w SCDs Plan/VTE VTE Prophylaxis Ordered?: Yes VS, I&O, 24H, Fishbone Vital Signs/I&O Vital Signs Date Time Temp Pulse Resp B/P (MAP) Pulse Ox O2 Delivery O2 Flow Rate FiO2 09/13/20 06:12 98.0 72 18 115/64 (81) 98 Room Air I&O- Last 24 Hours up to 6 AM 09/13/20 06:00 Intake Total 1340 ml Output Total 250 ml Balance 1090 ml Laboratory Data 24H LABS Laboratory Tests 2 09/13/20 07:38: Immature Granulocyte % (Auto) 1.3, Neutrophils (%) (Auto) 90.6H, Lymphocytes (%) (Auto) 3.8L, Monocytes (%) (Auto) 4.0, Eosinophils (%) (Auto) 0.1, Basophils (%) (Auto) 0.2, Neutrophils # (Auto) 18.1H, Lymphocytes # (Auto) 0.8L, Monocytes # (Auto) 0.8, Eosinophils # (Auto) 0.0, Basophils # (Auto) 0.0, Nucleated Red Blood Cells % (auto) 0.0, Prothrombin Time 16.3H, Prothromb Time International Ratio 1.28, Anion Gap 12, Glomerular Filtration Rate 40.5, Calcium Level 8.3L, Total Bilirubin 0.6, Aspartate Amino Transf (AST/SGOT) 24, Alanine Aminotransfe rase (ALT/SGPT) 72, Alkaline Phosphatase 107, Total Protein 5.3L, Albumin 1.7L, Albumin/Globulin Ratio 0.5L CBC/BMP Laboratory Tests 09/13/20 07:38 Microbiology Microbiology 09/11/20 Stool Occult Blood (ENRIQUE) - Final, Complete 09/11/20 Urine Culture, Received Pending 09/11/20 Blood Culture - Preliminary, Resulted No growth after 24 hours . All specim... 09/11/20 Blood Culture - Preliminary, Resulted No growth after 24 hours . All specim... JORDY PINEDA MD Sep 13, 2020 11:06
[2020-09-13 14:00] VITALS: BP 115/64
[2020-09-13 19:01] LABS: CLOSTRIDIUM DIFFICILE PCR NEGATIVE (NEGATIVE)
[2020-09-13] MEDS: ACETAMINOPHEN TAB 650MG DOSE (2X325MG) PO PRN (20:21)
[2020-09-13 22:00] VITALS: BP 110/60
[2020-09-14] MEDS: PIPERACILLIN/TAZOBACTAM SOD 3.375 GM in D5W MINI-BAG PLUS 50 ML IV SCH ×3 (02:49→16:42)
[2020-09-14] MEDS: LEVOTHYROXINE 75MCG TABLET (0.075MG) PO SCH (05:42)
[2020-09-14 06:23] VITALS: BP 106/59
[2020-09-14 08:38] LABS: BASO % 0.2 % (0.0-1.0); EOS % 0.1 % (0.0-3.0); HEMATOCRIT 28.3 % (36.0-47.0); HEMOGLOBIN 9.1 g/dl (12.0-15.5); LYMPH # 0.7 10^3/uL (1.5-5.0); LYMPH % 4.1 % (24.0-44.0); MEAN CORPUSCULAR HEMOGLOBIN 30.3 pg (27.0-33.0); MEAN CORPUSCULAR HGB CONC 32.2 g/dl (32.0-36.5); MEAN CORPUSCULAR VOLUME 94.3 fl (80.0-96.0); MONO # 0.7 10^3/uL (0.0-0.8); NEUTROPHILS # 16.5 10^3/uL (1.5-8.5); NEUTROPHILS % 90.3 % (36.0-66.0); PLATELET COUNT, AUTOMATED 333 10^3/uL (150-450); WHITE BLOOD COUNT 18.2 10^3/uL (4.0-10.0)
--- NOTE | 2020-09-14 08:52 | IPNPDOC ---
Subjective Date Seen The patient was seen on 09/14/20. Subjective Chief Complaint/HPI Feels about the same. No worsening. May be a little more energy. No fever or chills. Objective Physical Examination General Exam: Positive: Alert, Cooperative, No Acute Distress, Other (frail underweight) Eye Exam: Positive: PERRLA, Conjunctiva & lids normal, EOMI; Negative: Sclera icteric ENT Exam: Positive: Atraumatic, Mucous membr. moist/pink, Pharynx Normal, Other ENT (bitemporal wasting) Neck Exam: Positive: Supple; Negative: JVD, thyromegaly Chest Exam: Positive: Clear to auscultation, Normal air movement Heart Exam: Positive: Rate Normal, Regular Rhythm, Normal S1, Normal S2; Negative: Murmurs, Rubs Abdomen Exam: Positive: Normal bowel sounds, Soft; Negative: Tenderness, Hepatospenomegaly Extremity Exam: Negative: Clubbing, Cyanosis, Edema Skin Exam: Positive: Nl turgor and temperature; Negative: Rash, Breakdown Assessment /Plan Assessment Ms. Garcia is a 70 yr old w a hx of HTN, Hypothyroidism, Gastric bypass 2003, Colon, & Cystectomy with placement of urostomy 2017 was admitted for the evaluation of leukocytosis possibly 2/2 pyelonephritis, acute anemia, MIRTHA vs CKD and transaminitis. Leukocytosis possibly 2/[address] shows findings that suggest she may have pyelonephritis Peripheral smear pending. C diff negative. Pyelonephritis Has urostomy with ileal conduit. Urine culture ESBL Ecoli, Klebsiela and Proteus. blood cultures negative till date. urine culture pending. though this will probably be contaminated as she has urostomy bag. on zosyn. Anemia She has a hx of colon cancer resected in 2017 no chemo after that. and t hickening on CT stool occult positive x1, negative x 1, CEA normal She also has h/o gastric bypass in [address] Willis he will review the CT but she will need a EGD and Colonoscopy most likely this will done as outpatient as patient is stable at this point. Likely CKD stage 3. Has h/o total cystectomy with ileal conduit and urostomy. Due to involvement of the bladder by colon cancer. Possible underlying cirrhosis CT abd possible varices at he lower end of esophagus, mild transaminitis. This is probably from her h/o morbid obesity. Hep panel negative. She had liver Bx in 2006 Hypothyroidism Levothyroxine Protein calorie malnutrition s/p gastric bypass and s/p colon cancer albumin at 1.7, bitemporal wasting, BMi of 19.3 DVT px w SCDs Plan/VTE VTE Prophylaxis Ordered?: Yes VS, I&O, 24H, Fishbone Vital Signs/I&O Vital Signs Date Time Temp Pulse Resp B/P (MAP) Pulse Ox O2 Delivery O2 Flow Rate FiO2 09/14/20 06:23 98.1 66 16 106/59 (75) 97 Room Air I&O- Last 24 Hours up to 6 AM 09/14/20 06:00 Intake Total 1300 ml Output Total 800 ml Balance 500 ml Laboratory Data 24H LABS Laboratory Tests 2 09/13/20 18:07: Clostridium difficile [id number] PRESUMPTIVE NEGATIVE, Clostridium difficile Toxin (PCR) NEGATIVE 09/14/20 08:29: Immature Granulocyte % (Auto) 1.3, Neutrophils (%) (Auto) 90.3H, Lymphocytes (%) (Auto) 4.1L, Monocytes (%) (Auto) 4.0, Eosinophils (%) (Auto) 0.1, Basophils (%) (Auto) 0.2, Neutrophils # (Auto) 16.5H, Lymphocytes # (Auto) 0.7L, Monocytes # (Auto) 0.7, Eosinophils # (Auto) 0.0, Basophils # (Auto) 0.0, Nucleated Red Blood Cells % (auto) 0.0 CBC/BMP Laboratory Tests 09/14/20 08:29 Microbiology Microbiology 09/13/20 Stool Occult Blood (ENRIQUE) - Final, Complete 09/11/20 Stool Occult Blood (ENRIQUE) - Final, Complete 09/11/20 Urine Culture - Preliminary, Resulted E.coli Esbl Klebsiella Oxytoca Proteus Mirabilis 09/11/20 Blood Culture - Preliminary, Resulted No Growth after 48 hours. All Specime... 09/11/20 Blood Culture - Preliminary, Resulted No Growth after 48 hours. All Specime... JORDY PINEDA MD Sep 14, 2020 08:52
[2020-09-14 09:04] LABS: CALCIUM LEVEL 8.3 MG/DL (8.8-10.2); CREATININE FOR GFR 1.56 MG/DL (0.55-1.30); GLOMERULAR FILTRATION RATE 34.8 (>39); POTASSIUM SERUM 3.6 MEQ/L (3.5-5.1)
[2020-09-14] MEDS: LACTOBACILLUS ACIDOPHILUS CAP (BACID) PO SCH ×3 (09:15→20:12)
[2020-09-14 14:00] VITALS: BP 122/59
[2020-09-14 22:00] VITALS: BP 101/61
[2020-09-15] MEDS: PIPERACILLIN/TAZOBACTAM SOD 3.375 GM in D5W MINI-BAG PLUS 50 ML IV SCH ×3 (01:23→17:43)
[2020-09-15] MEDS: ACETAMINOPHEN TAB 650MG DOSE (2X325MG) PO PRN ×2 (03:24→20:17)
[2020-09-15] MEDS: LEVOTHYROXINE 75MCG TABLET (0.075MG) PO SCH (05:56)
[2020-09-15 06:00] VITALS: BP 100/62
[2020-09-15 06:42] LABS: BASO % 0.2 % (0.0-1.0); EOS % 0.1 % (0.0-3.0); HEMATOCRIT 27.9 % (36.0-47.0); HEMOGLOBIN 9.1 g/dl (12.0-15.5); LYMPH # 1.1 10^3/uL (1.5-5.0); LYMPH % 7.6 % (24.0-44.0); MEAN CORPUSCULAR HEMOGLOBIN 31.1 pg (27.0-33.0); MEAN CORPUSCULAR HGB CONC 32.6 g/dl (32.0-36.5); MEAN CORPUSCULAR VOLUME 95.2 fl (80.0-96.0); MONO # 0.6 10^3/uL (0.0-0.8); MONO % 4.4 % (0.0-5.0); NEUTROPHILS # 12.2 10^3/uL (1.5-8.5); NEUTROPHILS % 86.7 % (36.0-66.0); PLATELET COUNT, AUTOMATED 294 10^3/uL (150-450); RED BLOOD COUNT 2.93 10^6/uL (4.00-5.40); WHITE BLOOD COUNT 14.1 10^3/uL (4.0-10.0)
[2020-09-15 07:08] LABS: CALCIUM LEVEL 8.4 MG/DL (8.8-10.2); CREATININE FOR GFR 1.65 MG/DL (0.55-1.30); GLOMERULAR FILTRATION RATE 32.6 (>39); POTASSIUM SERUM 3.4 MEQ/L (3.5-5.1)
[2020-09-15] MEDS ORDERED: POTASSIUM CHLORIDE 10 MEQ SR TABLET PO ONE (08:00)
--- NOTE | 2020-09-15 08:03 | IPNPDOC ---
Subjective Date Seen The patient was seen on 09/15/20. Subjective Chief Complaint/HPI No new complaints this am. Had a low grade temp of 100.3, has chronic diarrhea after her colon resection. Objective Physical Examination General Exam: Positive: Alert, Cooperative, No Acute Distress, Other (frail underweight) Eye Exam: Positive: PERRLA, Conjunctiva & lids normal, EOMI; Negative: Sclera icteric ENT Exam: Positive: Atraumatic, Mucous membr. moist/pink, Pharynx Normal, Other ENT (bitemporal wasting) Neck Exam: Positive: Supple; Negative: JVD, thyromegaly Chest Exam: Positive: Clear to auscultation, Normal air movement Heart Exam: Positive: Rate Normal, Regular Rhythm, Normal S1, Normal S2; Negative: Murmurs, Rubs Abdomen Exam: Positive: Normal bowel sounds, Soft; Negative: Tenderness, Hepatospenomegaly Extremity Exam: Negative: Clubbing, Cyanosis, Edema Skin Exam: Positive: Nl turgor and temperature; Negative: Rash, Breakdown Assessment /Plan Assessment Ms. Garcia is a 70 yr old w a hx of HTN, Hypothyroidism, Gastric bypass 2003, Colon, & Cystectomy with placement of urostomy 2017 was admitted for the evaluation of leukocytosis possibly 2/2 pyelonephritis, acute anemia, MIRTHA vs CKD and transaminitis. Leukocytosis possibly 2/[address] shows findings that suggest she may have pyelonephritis Peripheral smear pending. C diff negative. Pyelonephritis Has urostomy with ileal conduit. Urine culture ESBL Ecoli, Klebsiela and Proteus, strep infantarius, enterococcus x 2 strains. blood cultures negative till date. on zosyn. Anemia She has a hx of colon cancer resected in 2017 no chemo after that. and thickening on CT stool occult positive x1, negative x 1, CEA normal She also has h/o gastric bypass in [address] Willis he will review the CT but she will need a EGD and Colonoscopy to evaluate fro reccurance of cancer, varices etc. Most likely this will done as outpatient as patient is stable at this point. Likely CKD stage 3. Has h/o total cystectomy with ileal conduit and urostomy. Due to involvement of the bladder by colon cancer. Possible underlying cirrhosis CT abd possible varices at he lower end of esophagus, mild transaminitis. This is probably from her h/o morbid obesity. Hep panel negative. She had liver Bx in 2006 Hypothyroidism Levothyroxine Protein calorie malnutrition s/p gastric bypass and s/p colon cancer albumin at 1.7, bitemporal wasting, BMi of 19.3 DVT px w SCDs Plan/VTE VTE Prophylaxis Ordered?: Yes VS, I&O, 24H, Fishbone Vital Signs/I&O Vital Signs Date Time Temp Pulse Resp B/P (MAP) Pulse Ox O2 Delivery O2 Flow Rate FiO2 09/15/20 06:00 97.4 62 17 100/62 (75) 98 Room Air I&O- Last 24 Hours up to 6 AM 09/15/20 07:00 Intake Total 2850 ml Output Total 0 ml Balance 2850 ml Laboratory Data 24H LABS Laboratory Tests 2 09/14/20 08:29: Immature Granulocyte % (Auto) 1.3, Neutrophils (%) (Auto) 90.3H, Lymphocytes (%) (Auto) 4.1L, Monocytes (%) (Auto) 4.0, Eosinophils (%) (Auto) 0.1, Basophils (%) (Auto) 0.2, Neutrophils # (Auto) 16.5H, Lymphocytes # (Auto) 0.7L, Monocytes # (Auto) 0.7, Eosinophils # (Auto) 0.0, Basophils # (Auto) 0.0, Nucleated Red Blood Cells % (auto) 0.0, Anion Gap 15, Glomerular Filtration Rate 34.8L, Calcium Level 8.3L 09/15/20 06:09: Immature Granulocyte % (Auto) 1.0, Neutrophils (%) (Auto) 86.7H, Lymphocytes (%) (Auto) 7.6L, Monocytes (%) (Auto) 4.4, Eosinophils (%) (Auto) 0.1, Basophils (%) (Auto) 0.2, Neutrophils # (Auto) 12.2H, Lymphocytes # (Auto) 1.1L, Monocytes # (Auto) 0.6, Eosinophils # (Auto) 0.0, Basophils # (Auto) 0.0, Nucleated Red Blood Cells % (auto) 0.0, Anion Gap 9, Glomerular Filtration Rate 32.6L, Calcium Level 8.4L CBC/BMP Laboratory Tests 09/14/20 08:29 09/15/20 06:09 Microbiology Microbiology 09/13/20 Stool Occult Blood (ENRIQUE) - Final, Complete 09/11/20 Stool Occult Blood (ENRIQUE) - Final, Complete 09/11/20 Urine Culture - Preliminary, Resulted E.coli Esbl Klebsiella Oxytoca Proteus Mirabilis Streptococcus Infantarius Coli Enterococcus Faecalis#2 Enterococcus Faecalis 09/11/20 Blood Culture - Preliminary, Resulted No Growth after 72 hours. All specime... 09/11/20 Blood Culture - Preliminary, Resulted No Growth after 72 hours. All specime... JORDY PINEDA MD Sep 15, 2020 08:03
[2020-09-15] MEDS: LACTOBACILLUS ACIDOPHILUS CAP (BACID) PO SCH ×3 (09:46→20:17)
[2020-09-15 14:00] VITALS: BP 117/63
[2020-09-15 20:23] VITALS: BP 114/63
[2020-09-16] MEDS: PIPERACILLIN/TAZOBACTAM SOD 3.375 GM in D5W MINI-BAG PLUS 50 ML IV SCH ×3 (01:22→17:00)
[2020-09-16] MEDS: LEVOTHYROXINE 75MCG TABLET (0.075MG) PO SCH (05:21)
[2020-09-16 06:11] VITALS: BP 94/50
[2020-09-16 06:30] LABS: BASO % 0.3 % (0.0-1.0); EOS % 0.2 % (0.0-3.0); HEMATOCRIT 30.5 % (36.0-47.0); HEMOGLOBIN 9.8 g/dl (12.0-15.5); LYMPH # 0.8 10^3/uL (1.5-5.0); LYMPH % 5.1 % (24.0-44.0); MEAN CORPUSCULAR HEMOGLOBIN 30.9 pg (27.0-33.0); MEAN CORPUSCULAR HGB CONC 32.1 g/dl (32.0-36.5); MEAN CORPUSCULAR VOLUME 96.2 fl (80.0-96.0); MONO # 0.7 10^3/uL (0.0-0.8); MONO % 4.3 % (0.0-5.0); NEUTROPHILS % 88.9 % (36.0-66.0); PLATELET COUNT, AUTOMATED 304 10^3/uL (150-450); RED BLOOD COUNT 3.17 10^6/uL (4.00-5.40); WHITE BLOOD COUNT 15.7 10^3/uL (4.0-10.0)
[2020-09-16 06:57] LABS: CALCIUM LEVEL 8.7 MG/DL (8.8-10.2); CREATININE FOR GFR 1.56 MG/DL (0.55-1.30); GLOMERULAR FILTRATION RATE 34.8 (>39); POTASSIUM SERUM 3.7 MEQ/L (3.5-5.1)
--- NOTE | 2020-09-16 09:03 | IPN ---
PROGRESS NOTE DATE: 09/16/2020 SUBJECTIVE: Nina is seen on [address]. She was admitted with leukocytosis, suspected pyelonephritis, acute anemia superimposed on chronic kidney disease. She has a urostomy. She grew out multiple organisms including ESBL, E. coli, proteus and Klebsiella, currently on Zosyn. CT of abdomen and pelvis shows lower esophageal thickening with varices and colonic thickening for which she would like to see her operation manager in [place] rather than have endoscopy here. Overall, she feels better and stronger but not ready for discharge. PHYSICAL EXAMINATION: VITAL SIGNS: Afebrile. Vital signs are stable. Blood pressure 94/50 this morning. GENERAL: Pleasant, alert, conversant, in no distress. LUNGS: Clear. HEART: Regular rhythm. ABDOMEN: Soft, nontender. No CVA tenderness. EXTREMITIES: No peripheral edema. LABORATORY DATA: White count is 15.7, hemoglobin is 9.8, platelets are 304,000, sodium is 141, potassium is 3.7, BUN 21, creatinine 1.5. Glucose is 86. IMPRESSION: 1. Pyelonephritis with multiple bacteria, currently on Zosyn and is afebrile. White count is slowly coming down. 2. Leukocytosis, suspected from pyelonephritis. Follows with daily lab testing. 3. C. Diff was negative. 4. Anemia, hemoglobin was stable and needs outpatient workup. She would like this done in [place]. 5. Stage III chronic kidney disease, daily labs have been ordered for this. 6. Hypothyroidism, continue current dose of levothyroxine.
[2020-09-16] MEDS: LACTOBACILLUS ACIDOPHILUS CAP (BACID) PO SCH ×3 (09:33→20:47)
[2020-09-16 14:00] VITALS: BP 106/56
--- NOTE | 2020-09-16 16:20 | REP ---
INDICATION: r/o hydro. COMPARISON: Comparison is made with CT images from 11 September 2020.. TECHNIQUE: Urinary tract sonography. FINDINGS: Urinary bladder is surgically absent.. Renal cortical echogenicity pattern is normal bilaterally and contours are smooth. There is no evidence of hydronephrosis, cyst, mass, or calculus in either kidney. The right kidney measures 11.9 x 6.7 x 4.6 cm. Left renal dimensions are 11.6 x 4.8 x 5.5 cm. IMPRESSION: Status post cystectomy. No evidence of hydronephrosis.. No abnormal intra renal or perirenal collection seen. <Electronically signed by Eusebio Anand > 09/16/20 [id number]
[2020-09-16 22:00] VITALS: BP 150/66
[2020-09-17] MEDS: PIPERACILLIN/TAZOBACTAM SOD 3.375 GM in D5W MINI-BAG PLUS 50 ML IV SCH ×4 (00:23→17:00)
[2020-09-17] MEDS: LEVOTHYROXINE 75MCG TABLET (0.075MG) PO SCH (05:30)
[2020-09-17 06:00] VITALS: BP 96/55
[2020-09-17 06:38] LABS: BASO % 0.3 % (0.0-1.0); EOS % 0.3 % (0.0-3.0); HEMATOCRIT 29.7 % (36.0-47.0); HEMOGLOBIN 9.6 g/dl (12.0-15.5); LYMPH % 7.4 % (24.0-44.0); MEAN CORPUSCULAR HEMOGLOBIN 30.7 pg (27.0-33.0); MEAN CORPUSCULAR HGB CONC 32.3 g/dl (32.0-36.5); MEAN CORPUSCULAR VOLUME 94.9 fl (80.0-96.0); MONO # 0.6 10^3/uL (0.0-0.8); MONO % 4.5 % (0.0-5.0); NEUTROPHILS # 11.3 10^3/uL (1.5-8.5); NEUTROPHILS % 86.7 % (36.0-66.0); PLATELET COUNT, AUTOMATED 253 10^3/uL (150-450); RED BLOOD COUNT 3.13 10^6/uL (4.00-5.40); WHITE BLOOD COUNT 13.1 10^3/uL (4.0-10.0)
[2020-09-17 06:46] LABS: CALCIUM LEVEL 8.4 MG/DL (8.8-10.2); CREATININE FOR GFR 1.44 MG/DL (0.55-1.30); GLOMERULAR FILTRATION RATE 38.2 (>39); POTASSIUM SERUM 3.9 MEQ/L (3.5-5.1)
[2020-09-17] MEDS: LACTOBACILLUS ACIDOPHILUS CAP (BACID) PO SCH ×3 (09:27→21:19)
--- NOTE | 2020-09-17 10:02 | IPN ---
PROGRESS NOTE DATE: 09/17/2020 SUBJECTIVE: Nina looks better every day. She is less short of breath and ambulating without difficulty in the room. Her blood pressure is a little low this morning at 96/55. She is not symptomatic from this. She has fatigue from her illness. OBJECTIVE: GENERAL APPEARANCE: Alert and conversant, in no distress. LUNGS: Clear. Good breath sounds. HEART: Regular rate and rhythm. ABDOMEN: Soft and nontender. EXTREMITIES: No peripheral edema. NEUROLOGIC: Nonfocal. LABORATORY DATA: White count 13.1, hemoglobin 9.6, platelets 253,000. Sodium 141, potassium 3.9, BUN 19, creatinine 1.4. IMAGING STUDIES: Renal ultrasound showed no obstruction or sign of hydronephrosis or perinephric fluid collection. IMPRESSION/PLAN: 1. Pyelonephritis polymicrobial currently on Zosyn. Plan to discharge her on Augmentin tomorrow. White count continues to improve. 2. Anemia. Stable hemoglobin. Plan for gastrointestinal (GI) workup as an outpatient. 3. Stage III chronic kidney disease. Creatinine followed on a daily basis. Anticipate discharge tomorrow.
[2020-09-17 14:00] VITALS: BP 106/57
[2020-09-17 22:00] VITALS: BP 106/57
[2020-09-18] MEDS: PIPERACILLIN/TAZOBACTAM SOD 3.375 GM in D5W MINI-BAG PLUS 50 ML IV SCH ×2 (01:19→09:35)
[2020-09-18] MEDS: LEVOTHYROXINE 75MCG TABLET (0.075MG) PO SCH (05:32)
[2020-09-18 06:00] VITALS: BP 109/58
[2020-09-18 06:32] LABS: BASO % 0.3 % (0.0-1.0); EOS % 0.3 % (0.0-3.0); HEMATOCRIT 28.8 % (36.0-47.0); HEMOGLOBIN 9.5 g/dl (12.0-15.5); LYMPH # 0.8 10^3/uL (1.5-5.0); LYMPH % 7.3 % (24.0-44.0); MEAN CORPUSCULAR HEMOGLOBIN 30.7 pg (27.0-33.0); MEAN CORPUSCULAR VOLUME 93.2 fl (80.0-96.0); MONO # 0.6 10^3/uL (0.0-0.8); MONO % 5.2 % (0.0-5.0); NEUTROPHILS # 9.9 10^3/uL (1.5-8.5); NEUTROPHILS % 86.2 % (36.0-66.0); PLATELET COUNT, AUTOMATED 263 10^3/uL (150-450); RED BLOOD COUNT 3.09 10^6/uL (4.00-5.40); WHITE BLOOD COUNT 11.4 10^3/uL (4.0-10.0)
[2020-09-18 06:57] LABS: CALCIUM LEVEL 8.8 MG/DL (8.8-10.2); CREATININE FOR GFR 1.39 MG/DL (0.55-1.30); GLOMERULAR FILTRATION RATE 39.8 (>39); POTASSIUM SERUM 3.1 MEQ/L (3.5-5.1)
[2020-09-18] MEDS ORDERED: POTASSIUM CHLORIDE 10 MEQ SR TABLET PO ONE (07:30)
[2020-09-18] MEDS ORDERED: POTASSIUM CHLORIDE 10% LIQ 20 MEQ/15 ML UDC PO ONE (09:30)
[2020-09-18] MEDS: LACTOBACILLUS ACIDOPHILUS CAP (BACID) PO SCH (09:36)
[2020-09-18] MEDS ORDERED: AUGM875T28 PO (09:43)
== END 2020-09-18 12:55 | disposition home or self-care (01) | DRG 690 ==
LOC: M ED 12:12 → M ED INP 19:28 → EEVIPCON 19:28 → M MS5PR 21:30
PROVIDERS: ADMIT Internal Medicine; ATTEND Internal Medicine Nephrology
DX: N12 Tubulo-interstitial nephritis, not specified as acute or chronic (principal); E46 Unspecified protein-calorie malnutrition; Z68.1 Body mass index [BMI] 19.9 or less, adult; N17.9 Acute kidney failure, unspecified; I12.9 Hypertensive chronic kidney disease with stage 1 through stage 4 chronic kidney disease, or unspecified chronic kidney disease; E03.9 Hypothyroidism, unspecified; Z85.038 Personal history of other malignant neoplasm of large intestine; D64.9 Anemia, unspecified; Z79.899 Other long term (current) drug therapy; Z88.0 Allergy status to penicillin; Z88.8 Allergy status to other drugs, medicaments and biological substances; N18.30 Chronic kidney disease, stage 3 unspecified

== ENCOUNTER → 2022-01-20 | Outpatient (CLI) | payer MEDICARE ==
[2022-01-20 13:55] LABS: ALBUMIN 3.5 GM/DL (3.2-5.2); BILIRUBIN,TOTAL 1.1 MG/DL (0.2-1.0); CREATININE FOR GFR 1.55 MG/DL (0.55-1.30); POTASSIUM SERUM 3.9 MEQ/L (3.5-5.1); TOTAL PROTEIN 6.7 GM/DL (6.4-8.2)
== END ==
LOC: M LAB 12:26
DX: C18.9 Malignant neoplasm of colon, unspecified (principal)

== ENCOUNTER → 2022-01-22 | Outpatient (CLI) | payer MEDICARE ==
[~2022-01-22] MED LIST changes: +GASTROGRAFIN SOLUTION 30ML (Q9963) As Ordered ONE; +ISOVUE-370 76% 100ML VIAL As Ordered ONE
== END ==
LOC: M RAD 11:38
DX: C18.9 Malignant neoplasm of colon, unspecified (principal); M85.9 Disorder of bone density and structure, unspecified; Z90.49 Acquired absence of other specified parts of digestive tract
CPT/HCPCS: 74177; Q9963; Q9967